=== PATIENT | male | born 1985 | race Caucasian/White ===

== ENCOUNTER 2017-09-18 17:01 | Emergency (ER) | payer MEDICAID ==
[2017-09-18 17:01] VITALS: BMI 29.2
[2017-09-18 17:40] VITALS: RESP 18; TEMP 98.2
--- NOTE | 2017-09-18 17:41 | ED PDOC ---
Arrival/HPI - General Historian: Patient - History of Present Illness Time/Duration: Prior to Arrival Symptom Onset: Gradual Symptom Course: Unchanged Quality: Aching Severity Level: Mild, Moderate Activities at Onset: Rest, Sleeping Context: Home <Brittany Geronimo - Last Filed: 09/18/17 20:11> <Abilio Irvin - Last Filed: 09/18/17 20:33> - General Chief Complaint: Flu-like Symptoms Time Seen by Provider: 09/18/17 17:28 - History of Present Illness Narrative History of Present Illness (Text): 09/18/17 17:36 Pt is 31 yo M who presents with fever and cough x 2 days. Pt reports that he developed sinus congestion and sore throat that progressed to a non-productive cough and body aches. States subjective fever last night with a cold sweat. Pt has not had the flu shot this year. Denies SOB, CP, or headache. Took ibuprofen 400 mg this am for fever. 09/18/17 17:41 (Brittany Geronimo) Past Medical History - Provider Review Nursing Documentation Reviewed: Yes - Travel History Have you recently traveled outside [place] w/in the past 3 mons?: No - Past History Past History: No Previous - Infectious Disease Hx of Infectious Diseases: None - Tetanus Immunization Tetanus Immunization: Unknown - Cardiac Hx Cardiac Disorders: Yes Other/Comment: palpitations - Pulmonary Hx Asthma: Yes - Neurological Hx Neurological Disorder: No - HEENT Hx HEENT Disorder: No - Renal Hx Renal Disorder: No - Endocrine/Metabolic Hx Endocrine Disorders: No - Hematological/Oncological Hx Blood Disorders: No - Integumentary Hx Dermatological Disorder: No - Musculoskeletal/Rheumatological Hx Musculoskeletal Disorders: Yes (right rotator cuff repair) - Gastrointestinal Hx Gastrointestinal Disorders: No - Genitourinary/Gynecological Hx Genitourinary Disorders: No - Psychiatric Hx Psychophysiologic Disorder: No Hx Substance Use: No - Past Surgical History Past Surgical History: No Previous - Surgical History Hx Appendectomy: Yes Hx Orthopedic Surgery: Yes (rotator cuff repair) - Anesthesia Hx Anesthesia: Yes Hx Anesthesia Reactions: No Hx Malignant Hyperthermia: No - Suicidal Assessment Feels Threatened In Home Enviroment: No <Brittany Geronimo - Last Filed: 09/18/17 20:11> Family/Social History - Physician Review Nursing Documentation Reviewed: Yes Family/Social History: No Known Family HX Smoking Status: Light Smoker < 10 Cigarettes Daily Hx Alcohol Use: Yes Frequency of alcohol use: Socially Hx Substance Use: No Hx Substance Use Treatment: No <Brittany Geronimo - Last Filed: 09/18/17 20:11> Allergies/Home Meds <Brittany Geronimo - Last Filed: 09/18/17 20:11> <AlbaroAbilio - Last Filed: 09/18/17 20:33> Allergies/Adverse Reactions: Allergies No Known Allergies Allergy (Verified 09/18/17 17:24) Home Medications: Home Meds Medication Instructions Recorded Confirmed Albuterol HFA [Ventolin HFA 90 1 puff IH PRN PRN 06/06/16 09/18/17 mcg/actuation (8 g)] Review of Systems - Physician Review All systems were reviewed & negative as marked: Yes - Review of Systems Constitutional: Fatigue, Fevers Respiratory: Normal Cardiovascular: Normal. absent: Chest Pain, Palpitations, Edema, Calf Pain, ROMAN , Orthopnea, SY, Syncope, Other Gastrointestinal: Normal. absent: Abdominal Pain, Stool Changes, Constipation, Diarrhea, Nausea, Vomiting, Appetite Changes, Hematochezia, Hematemesis, Anorexia, Food Intolerance, Other Musculoskeletal: Normal. absent: Arthralgias, Back Pain, Neck Pain, Joint Swelling, Myalgias, Other <Brittany Geronimo - Last Filed: 09/18/17 20:11> Physical Exam Vital Signs Reviewed: Yes Temperature: Afebrile Blood Pressure: Normal Pulse: Regular Respiratory Rate: Normal Appearance: Positive for: Non-Toxic, Comfortable Pain Distress: None Mental Status: Positive for: Alert and Oriented X 3 - Systems Exam Head: Present: Atraumatic, Normocephalic Pupils: Present: PERRL Extroacular Muscles: Present: EOMI Conjunctiva: Present: Normal Mouth: Present: Moist Mucous Membranes Pharnyx: Present: ERYTHEMA (mild) Neck: Present: Normal Range of Motion Respiratory/Chest: Present: Clear to Auscultation, Good Air Exchange. No: Respiratory Distress, Accessory Muscle Use Cardiovascular: Present: Regular Rate and Rhythm, Normal S1, S2. No: Murmurs Abdomen: Present: Normal Bowel Sounds. No: Tenderness, Distention, Peritoneal Signs Back: Present: Normal Inspection Upper Extremity: Present: Normal Inspection. No: Cyanosis, Edema Lower Extremity: Present: Normal Inspection. No: Edema Neurological: Present: GCS=15, CN II-XII Intact, Speech Normal Skin: Present: Warm, Dry, Normal Color. No: Rashes Psychiatric: Present: Alert, Oriented x 3, Normal Insight, Normal Concentration <Brittany Geronimo - Last Filed: 09/18/17 20:11> Vital Signs Temp Pulse Resp BP Pulse Ox 09/18/17 19:11 74 18 137/84 99 09/18/17 19:01 69 18 148/68 98 09/18/17 17:20 98.2 F 70 18 153/75 H 96 Medical Decision Making Re-evaluation Time: 21:00 (stable) Reassessment Condition: Re-examined - Lab Interpretations I have reviewed the lab results: Yes - RAD Interpretation Vice President Of Advertising: Radiologist <Brittany Geronimo - Last Filed: 09/18/17 20:11> <Abilio Irvin - Last Filed: 09/18/17 20:33> ED Course and Treatment: 09/18/17 17:45 Pt is 31 yo M who presents with fever and cough x 2 days. On PE, post pharynx mildly inflamed, no wheezing on lung exam; nares patent. Plan: Rapid flu CXR incentive spirometer Assess and dispo; -pt has a negative cxr and does not exhibit any signs of asthma exacerbation secondary to URI; -advised pt to return home, get plenty of rest and fluids and use ventolin inhaler if chest congestion -Neg for flu Ag -note for work given 09/18/17 19:33 09/18/17 20:02 (Brittany Geronimo) - Lab Interpretations Lab Results: Lab Results 09/18/17 19:00: Influenza Typ A,B (EIA) Negative for flu a/b - RAD Interpretation Radiology Orders: 09/18/17 18:32 CXR [CHEST TWO VIEWS (PA/LAT)] [RAD] Stat CXR unremarkable (Brittany Geronimo) - PA / VEGETABLE PACKER / Resident Statement MD/DO has reviewed & agrees with the documentation as recorded. <Abilio Irvin - Last Filed: 09/18/17 20:33> Disposition/Present on Arrival - Present on Arrival Any Indicators Present on Arrival: Yes History of DVT/PE: No History of Uncontrolled Diabetes: No Urinary Catheter: No History of Decub. Ulcer: No History Surgical Site Infection Following: None - Disposition Have Diagnosis and Disposition been Completed?: Yes Disposition Time: 19:47 Patient Plan: Discharge <Brittany Geronimo - Last Filed: 09/18/17 20:11> <Abilio Irvin - Last Filed: 09/18/17 20:33> - Disposition Diagnosis: URI (upper respiratory infection) Disposition: HOME/ ROUTINE Condition: GOOD Discharge Instructions (ExitCare): Upper Respiratory Infection (ED) Additional Instructions: Dear Patient, If you experience worsening of symptoms such as high fever, shortness of breath , chest pain or bleeding, return to the ED for further evaluation. Please follow the handouts provided and have a speedy recovery. you may use your Ventolin inhaler to help you breathe easier and you can take ibuprofen for fever and pain as needed. Follow up with your doctor in the next few days. Be well Referrals: Destiny Contreras, [Primary Care Provider] - Follow up with primary Forms: [employer] (Slovenian), WORK NOTE
[2017-09-18 19:12] VITALS: BP 137/84; PULSE 74; O2SAT 99
--- NOTE | 2017-09-19 08:57 | RAD ---
HISTORY: cough COMPARISON: No prior. TECHNIQUE: Two view chest. Send the upper FINDINGS: LUNGS: No active pulmonary disease. PLEURA: No significant pleural effusion identified. No pneumothorax apparent. CARDIOVASCULAR: Normal. OSSEOUS STRUCTURES: No significant abnormalities. VISUALIZED UPPER ABDOMEN: Normal. OTHER FINDINGS: None. IMPRESSION: No active disease.
== END 2017-09-18 20:20 | disposition home or self-care (01) ==
LOC: ED 17:01
DX: J06.9 Acute upper respiratory infection, unspecified (principal); F17.210 Nicotine dependence, cigarettes, uncomplicated

== ENCOUNTER 2018-06-10 23:10 | Emergency (ER) | payer OTHER, MEDICAID ==
[2018-06-10 23:10] VITALS: BMI 29.2
--- NOTE | 2018-06-11 00:25 | ED PDOC ---
Arrival/HPI - General Chief Complaint: Upper Extremity Problem/Injury Time Seen by Provider: 06/11/18 00:04 Historian: Patient - History of Present Illness Narrative History of Present Illness (Text): 06/11/18 00:17 32 year old male, whose past medical history includes appendectomy, presents to the emergency department with left arm pain, status post fall. Patient states he was at work when his arm fell through a hole, and bent all the way back. Patient informs he cannot move his arm due to the pain, and that his left chest is painful to the touch. Patient denies any fevers, chills, headache, dizziness, abdominal pain, nausea, vomiting, diarrhea, back pain, neck pain, urinary/bowel changes, or any other complaint. Time/Duration: Prior to Arrival Symptom Onset: Sudden Symptom Course: Unchanged Past Medical History - Provider Review Nursing Documentation Reviewed: Yes - Past History Past History: No Previous - Infectious Disease Hx of Infectious Diseases: None - Tetanus Immunization Tetanus Immunization: Unknown - Cardiac Hx Cardiac Disorders: No - Pulmonary Hx Asthma: Yes - Neurological Hx Neurological Disorder: No - HEENT Hx HEENT Disorder: No - Renal Hx Renal Disorder: No - Endocrine/Metabolic Hx Endocrine Disorders: No - Hematological/Oncological Hx Blood Disorders: No - Integumentary Hx Dermatological Disorder: No - Musculoskeletal/Rheumatological Hx Musculoskeletal Disorders: Yes (right rotator cuff repair) - Gastrointestinal Hx Gastrointestinal Disorders: No - Genitourinary/Gynecological Hx Genitourinary Disorders: No - Psychiatric Hx Psychophysiologic Disorder: No Hx Substance Use: No - Past Surgical History Past Surgical History: No Previous - Surgical History Hx Appendectomy: Yes Hx Orthopedic Surgery: Yes (rotator cuff repair) - Anesthesia Hx Anesthesia: Yes Hx Anesthesia Reactions: No Hx Malignant Hyperthermia: No - Suicidal Assessment Feels Threatened In Home Enviroment: No Family/Social History - Physician Review Nursing Documentation Reviewed: Yes Family/Social History: No Known Family HX Smoking Status: Light Smoker < 10 Cigarettes Daily Hx Alcohol Use: Yes Hx Substance Use: No Hx Substance Use Treatment: No Allergies/Home Meds Allergies/Adverse Reactions: Allergies No Known Allergies Allergy (Verified 09/18/17 17:24) Home Medications: Home Meds Medication Instructions Recorded Confirmed Albuterol HFA [Ventolin HFA 90 1 puff IH PRN PRN 06/06/16 09/18/17 mcg/actuation (8 g)] Review of Systems - Physician Review All systems were reviewed & negative as marked: Yes - Review of Systems Constitutional: absent: Fevers, Night Sweats Gastrointestinal: absent: Abdominal Pain, Diarrhea, Nausea, Vomiting Genitourinary Male: absent: Urinary Output Changes Musculoskeletal: absent: Back Pain, Neck Pain Neurological: absent: Headache, Dizziness Physical Exam - Physical Exam Narrative Physical Exam (Text): 06/11/18 00:26 Gen: VS reviewed, alert, well developed, well nourished, nontoxic, mild distress. ENT: normal pharynx. Eye: EOMI, PERRL. Neck: no JVD, supple, no adenopathy. CV: regular rate, regular rhythm, no rubs, no murmur, no gallops, S1, S2, pulses equal and strong. Pulm: no distress, clear to auscultation, no wheeze, no rhonchi, breath sounds equal, no rales. Abd: soft, nontender, no guarding, no rebound, no rigidity, normal bowel sounds. Ext: Diffuse tenderness on left shoulder, Significantly diminished ROM secondary to pain, Pain localized to pectoris major attachment. Skin: good color, no rash, no cyanosis. Psych: responds appropriately to questions, normal affect. Neuro: oriented x 3, CN2-12 intact grossly, motor intact, sensation intact. Medical Decision Making ED Course and Treatment: 06/11/18 00:27 Impression: 32 year old male presents with left shoulder pain secondary to injury. Plan: -- Tylenol -- Toradol -- Shoulder Sling -- X-ray left shoulder -- Reassess and disposition Prior Visits: Notes and results from previous visits were reviewed. Progress Notes: 06/11/18 02:04 patient seen for left shoulder injury (hyperextention while arm flexed upward). no overt bony injury, high clinical suspicion for muscle strain vs tear. will provide arm sling, refer to ortho - RAD Interpretation Narrative RAD Interpretations (Text): 06/11/18 01:51 X-ray of left shoulder reviewed by me, shows: No fracture or dislocation. Registered Nurse Supervisor: ED Physician - Scribe Statement The provider has reviewed the documentation as recorded by the Brigetteibnikia Coppola Provider Scribe Attestation: All medical record entries made by the Brigetteibnikia were at my direction and personally dictated by me. I have reviewed the chart and agree that the record accurately reflects my personal performance of the history, physical exam, medical decision making, and the department course for this patient. I have also personally directed, reviewed, and agree with the discharge instructions and disposition. Disposition/Present on Arrival - Present on Arrival Any Indicators Present on Arrival: No History of DVT/PE: No History of Uncontrolled Diabetes: No Urinary Catheter: No History of Decub. Ulcer: No History Surgical Site Infection Following: None - Disposition Have Diagnosis and Disposition been Completed?: Yes Diagnosis: Shoulder sprain, Muscle strain of left upper arm Disposition: HOME/ ROUTINE Disposition Time: 02:06 Patient Plan: Discharge Condition: STABLE Discharge Instructions (ExitCare): Muscle Strain, Shoulder Sprain (DC) Additional Instructions: You must follow up with the orthopedic surgeon as soon as possible. JERRY LAUREANO, thank you for letting us take care of you today. Your provider was Dr. Carlos Gaviria and you were treated for lft shoulder injury The emergency medical care you received today was directed at your acute symptoms. If you were prescribed any medication, please fill it and take as directed. It may take several days for your symptoms to resolve. Return to the Emergency Department if your symptoms worsen, do not improve, or if you have any other problems. Please contact your doctor or call one of the physicians/clinics you have been referred to that are listed on the Patient Visit Information form that is included in your discharge packet. Bring any paperwork you were given at discharge with you along with any medications you are taking to your follow up visit. Our treatment cannot replace ongoing medical care by a primary care prov ider outside of the emergency department. Thank you for allowing the [facility] team to be part of your care today. If you had an X-Ray or CT scan: A Radiologist will review the ED reading if any change in treatment is needed we will contact you. If you had a blood, urine, or wound culture: It will take several days for the results, if any change in treatment is needed we will contact you. If you had an STI test: It will take 48 hours for the results. Please call after 1 week if you have not heard back. Prescriptions: Ibuprofen [Motrin Tab] 600 mg PO QID #42 tab Referrals: PCP,NO [Primary Care Provider] - Follow up with primary [facility] [Outside] - Follow up with primary Daina Hernandez MD [Medical Doctor] - Follow up with primary Jorge Subramanian MD [Medical Doctor] - Follow up with primary Forms: [employer] (Ukrainian), WORK NOTE
[2018-06-11 00:39] VITALS: RESP 18
[2018-06-11 03:09] VITALS: BP 130/70; PULSE 70; TEMP 98.1; O2SAT 99
--- NOTE | 2018-06-11 09:31 | RAD ---
Date of service: 06/11/2018 PROCEDURE: Radiographs of the Left Shoulder HISTORY: hyperextension, injury COMPARISON: No prior. FINDINGS: BONES: Bone alignment and mineralization are normal. There is no acute displaced fracture or bone destruction. JOINTS: Normal. Glenohumeral and acromioclavicular joints preserved. No osteoarthritis. SOFT TISSUES: Normal. OTHER FINDINGS: None. IMPRESSION: No acute fracture or dislocation is.
== END 2018-06-11 02:15 | disposition home or self-care (01) ==
LOC: ED 23:10
DX: S43.402A Unspecified sprain of left shoulder joint, initial encounter (principal); S46.912A Strain of unspecified muscle, fascia and tendon at shoulder and upper arm level, left arm, initial encounter; X50.0XXA Overexertion from strenuous movement or load, initial encounter; Y92.89 Other specified places as the place of occurrence of the external cause; Y99.0 Civilian activity done for income or pay
CPT/HCPCS: 73030; 96372; 99283; J1885

== ENCOUNTER 2018-06-13 20:28 | Inpatient (IN) | payer MEDICAID, OTHER ==
[2018-06-13 20:37] VITALS: BMI 28.5
--- NOTE | 2018-06-13 21:38 | ED PDOC ---
Arrival/HPI - General Chief Complaint: Abdominal Pain Time Seen by Provider: 06/13/18 21:16 Historian: Patient - History of Present Illness Narrative History of Present Illness (Text): 06/13/18 21:38 A 32 year old male, whose past medical history includes an appendectomy, presents to the emergency department complaining of 10/10 abdominal pain since 2 days ago. Patient reports experiencing constant pain with associated vomiting, nausea and chills. Patient states he drank pepto bismol for pain to no relief and denies taking any other medication for pain. Patient states last bowel movement was 4 days ago. Patient denies any fever, shortness of breath, chest pain, diarrhea, urinary symptoms, back pain, neck pain, headache, dizziness, or any other complaints. Time/Duration: Other (2 days ago) Symptom Onset: Gradual Symptom Course: Unchanged Severity Level: Moderate Activities at Onset: Light Context: Home Past Medical History - Provider Review Nursing Documentation Reviewed: Yes - Past History Past History: No Previous - Infectious Disease Hx of Infectious Diseases: None - Tetanus Immunization Tetanus Immunization: Unknown - Cardiac Hx Cardiac Disorders: No - Pulmonary Hx Asthma: Yes - Neurological Hx Neurological Disorder: No - HEENT Hx HEENT Disorder: No - Renal Hx Renal Disorder: No - Endocrine/Metabolic Hx Endocrine Disorders: No - Hematological/Oncological Hx Blood Disorders: No - Integumentary Hx Dermatological Disorder: No - Musculoskeletal/Rheumatological Hx Musculoskeletal Disorders: Yes (right rotator cuff repair) - Gastrointestinal Hx Gastrointestinal Disorders: No - Genitourinary/Gynecological Hx Genitourinary Disorders: No - Psychiatric Hx Psychophysiologic Disorder: No Hx Substance Use: No - Past Surgical History Past Surgical History: No Previous - Surgical History Hx Appendectomy: Yes Hx Orthopedic Surgery: Yes (rotator cuff repair) - Anesthesia Hx Anesthesia: Yes Hx Anesthesia Reactions: No Hx Malignant Hyperthermia: No - Suicidal Assessment Feels Threatened In Home Enviroment: No Family/Social History - Physician Review Nursing Documentation Reviewed: Yes Family/Social History: Unknown Family HX Smoking Status: Light Smoker < 10 Cigarettes Daily Hx Alcohol Use: Yes Hx Substance Use: No Hx Substance Use Treatment: No Allergies/Home Meds Allergies/Adverse Reactions: Allergies No Known Allergies Allergy (Verified 09/18/17 17:24) Home Medications: Home Meds Medication Instructions Recorded Confirmed RX: No Known Home Med 10/18/18 10/18/18 Review of Systems - Physician Review All systems were reviewed & negative as marked: Yes - Review of Systems Constitutional: Night Sweats. absent: Fevers Respiratory: absent: SOB Cardiovascular: absent: Chest Pain Gastrointestinal: Abdominal Pain, Nausea, Vomiting. absent: Diarrhea Genitourinary Male: absent: Urinary Output Changes Musculoskeletal: absent: Back Pain, Neck Pain Neurological: absent: Headache, Dizziness Physical Exam Vital Signs Reviewed: Yes Vital Signs Temp Pulse Resp BP Pulse Ox 06/13/18 20:36 98.7 F 93 H 18 148/75 100 Temperature: Afebrile Blood Pressure: Normal Pulse: Tachycardic Respiratory Rate: Normal Appearance: Positive for: Well-Appearing, Non-Toxic, Comfortable Pain Distress: None Mental Status: Positive for: Alert and Oriented X 3 - Systems Exam Head: Present: Atraumatic, Normocephalic Pupils: Present: PERRL Extroacular Muscles: Present: EOMI Conjunctiva: Present: Normal Mouth: Present: Moist Mucous Membranes (+pink ), Dry Neck: Present: Normal Range of Motion Respiratory/Chest: Present: Clear to Auscultation, Good Air Exchange. No: Respiratory Distress, Accessory Muscle Use Cardiovascular: Present: Regular Rate and Rhythm, Normal S1, S2. No: Murmurs Abdomen: Present: Tenderness (+tenderness in epigastric area, right and left lower quadrants), Other (+obese). No: Distention, Rebound, Guarding Genitourinary Male: Present: Other (+decreased bowel sounds) Back: Present: Normal Inspection Upper Extremity: Present: Normal Inspection. No: Cyanosis, Edema Lower Extremity: Present: Normal Inspection. No: Edema Neurological: Present: GCS=15, CN II-XII Intact, Speech Normal Skin: Present: Warm, Dry, Normal Color. No: Rashes Psychiatric: Present: Alert, Oriented x 3, Normal Insight, Normal Concentration Medical Decision Making ED Course and Treatment: 06/13/18 21:35 Impression: 32 year old male presenting to the emergency department complaining of abdominal pain. Plan: -- CT of Abdomen and Pelvis -- Toradol -- Zofran -- IV fluids -- Reassess and disposition Prior Visits: Notes and results from previous visits were reviewed. Progress Notes: 06/14/18 00:22 Procedure: CT of the abdomen and pelvis with contrast Impression: Impression: 1. Moderate enteritis. No evidence of obstruction. Dictator:Miguel Lomeli M.D 06/14/18 00:35 Upon reassessment, patient has an elevated white count and AST and ALT are markedly elevated. Patient reports toradol helped some but refuses any other types due to family history of addiction. Patient agrees to be admitted to hospital and agreed for poc. 06/14/18 00:[address] Mauricio, hospitalist, who accepts the patient into his service for further evaluation and management. 06/14/18 05:52 - Scribe Statement The provider has reviewed the documentation as recorded by the Scribe Deisi Nettles All medical record entries made by the Scribe were at my direction and personally dictated by me. I have reviewed the chart and agree that the record accurately reflects my personal performance of the history, physical exam, medical decision making, and the department course for this patient. I have also personally directed, reviewed, and agree with the discharge instructions and disposition. Disposition/Present on Arrival - Present on Arrival Any Indicators Present on Arrival: No History of DVT/PE: No History of Uncontrolled Diabetes: No Urinary Catheter: No History of Decub. Ulcer: No History Surgical Site Infection Following: None - Disposition Have Diagnosis and Disposition been Completed?: Yes Diagnosis: Abdominal pain, Transaminitis Disposition: HOSPITALIZED Disposition Time: 00:54 Patient Plan: Admission Condition: STABLE
[2018-06-13] MEDS ORDERED: Sodium Chloride 0.9% 1,000 ML IV STA (21:55)
[2018-06-13 22:08] LABS: BASO # 0.02 K/mm3 (0.0-2.0); BASO % 0.1 % (0.0-3.0); EOS # 0.1 (0.0-0.7); EOS % 0.5 % (1.5-5.0); GRAN # 12.49 (1.4-6.5); GRAN % 78.8 % (50.0-68.0); HEMOGLOBIN 13.7 g/dL (14.0-18.0); LYMPH # 2.1 (1.2-3.4); LYMPH % 13.2 % (22.0-35.0); MEAN CELL VOLUME 84.5 fl (80.0-105.0); MEAN CORPUSCULAR HEMOGLOBIN 28.3 pg (25.0-35.0); MEAN CORPUSCULAR HGB CONC 33.5 g/dl (31.0-37.0); MEAN PLATELET VOLUME 10.6 fl (7.0-11.0); MONO # 1.2 (0.1-0.6); MONO % 7.4 % (1.0-6.0); RBC 4.84 10^6/uL (3.5-6.1); RED CELL DISTRIBUTION WIDTH 13.7 % (11.5-14.5); WHITE BLOOD COUNT 15.9 10^3/ul (4.5-11.0)
[2018-06-13 22:19] LABS: ALB/GLOB RATIO 1.1 (1.1-1.8); ALBUMIN 4.4 g/dL (3.0-4.8); BLOOD UREA NITROGEN 12 mg/dL (7-21); CALCIUM 9.5 mg/dL (8.4-10.5); GFR NON-AFRICAN AMERICAN > 60; LIPASE 67 U/L (23-300)
[2018-06-13 22:28] LABS: ALT/SGPT 1511 U/L (7-56); AST/SGOT 1045 U/L (17-59)
[2018-06-14] MEDS ORDERED: Morphine 4 mg/ml ISec IVP STA (01:19)
[2018-06-14] MEDS ORDERED: oxyCODONE 10 mg Immediate Release Tab PO PRN (01:21)
[2018-06-14] MEDS ORDERED: ACETYLCYSTEINE IVPB STA (01:23)
[2018-06-14] MEDS ORDERED: WATER IVPB STA (01:23)
[2018-06-14] MEDS ORDERED: DEXTROSE 5% IVPB STA (01:23)
--- NOTE | 2018-06-14 01:27 | CP.PCM.HP ---
<Wojciech Mendoza - Last Filed: 06/14/18 05:10> History of Present Illness - History of Present Illness History of Present Illness: Wojciech Mendoza, PGY-1 History and Physical for Hospitalist Service CC: Abdominal pain HPI: Mr. Cano is a 32 year old male with PMHx of appendectomy presents toda y with complaint of intractable nausea and vomiting x 3 day. He states he has had sharp pain that comes in 5-7 minute waves that has not been relieved by over the counter medications. Patient states he could not keep any food down. Patient reports dark urine. Patient reports multiple family members have suffered from opiate dependence. No bowel movements for three days. Reports urine has been dark and feel dehydrated. Patient reports taking 3 children's Tylenol for 2 days for abdominal pain, and patient reports use of Muscle milk and pepto bismol without relief. Denies any fever, chills, chest pain, shortness of breath, cough or dysuria. Denies any other complaints. PMD: none PMH: denies PSH: appendectomy, right shoulder surgery Home Medications: denies Social History: former smokes 1 ppd; drinks socially; denies illicit drug use (Utox in past positive for benzodiazepines and amphetamines) Fam hx: mom- DM and thyroid issues, Uncle has liver cirrhosis, grandmother recently passed from stroke All: NKDA PCP: None Present on Admission - Present on Admission Any Indicators Present on Admission: No Review of Systems - Review of Systems Review of Systems: 12 point ROS completed and negative except as described in HPI. Past Patient History - Infectious Disease Hx of Infectious Diseases: None - Tetanus Immunizations Tetanus Immunization: Unknown - Past Social History Smoking Status: Light Smoker < 10 Cigarettes Daily - CARDIAC Hx Cardiac Disorders: No - PULMONARY Hx Asthma: Yes - NEUROLOGICAL Hx Neurological Disorder: No - HEENT Hx HEENT Problems: No - RENAL Hx Chronic Kidney Disease: No - ENDOCRINE/METABOLIC Hx Endocrine Disorders: No - HEMATOLOGICAL/ONCOLOGICAL Hx Blood Disorders: No - INTEGUMENTARY Hx Dermatological Problems: No - MUSCULOSKELETAL/RHEUMATOLOGICAL Hx Musculoskeletal Disorders: Yes (right rotator cuff repair) - GASTROINTESTINAL Hx Gastrointestinal Disorders: No - GENITOURINARY/GYNECOLOGICAL Hx Genitourinary Disorders: No - PSYCHIATRIC Hx Psychophysiologic Disorder: No Hx Substance Use: No - SURGICAL HISTORY Hx Appendectomy: Yes Hx Orthopedic Surgery: Yes (rotator cuff repair) - ANESTHESIA Hx Anesthesia: Yes Hx Anesthesia Reactions: No Hx Malignant Hyperthermia: No Meds Allergies/Adverse Reactions: Allergies Allergy/AdvReac Type Severity Reaction Status Date / Time No Known Allergies Allergy Verified 09/18/17 17:24 Physical Exam - Constitutional Appears: Non-toxic, In Acute Distress - Head Exam Head Exam: ATRAUMATIC, NORMOCEPHALIC - Eye Exam Eye Exam: EOMI, Normal appearance Pupil Exam: PERRL - ENT Exam ENT Exam: Mucous Membranes Moist - Neck Exam Neck exam: Positive for: Normal Inspection - Respiratory Exam Respiratory Exam: Decreased Breath Sounds, Clear to Auscultation Bilateral, NORMAL BREATHING PATTERN. absent: Rales, Rhonchi, Wheezes - Cardiovascular Exam Cardiovascular Exam: RRR, +S1, +S2 - GI/Abdominal Exam GI & Abdominal Exam: Hypoactive Bowel Sounds, Soft, Tenderness (RUQ and LLQ ). absent: Guarding, Rebound - Extremities Exam Extremities exam: Positive for: normal inspection - Back Exam Back exam: FULL ROM. absent: CVA tenderness (L), CVA tenderness (R) - Neurological Exam Neurological exam: Alert, CN II-XII Intact, Oriented x3 - Psychiatric Exam Psychiatric exam: Agitated - Skin Skin Exam: Dry, Intact Results - Vital Signs Recent Vital Signs: Last Vital Signs Temp 98.7 F 06/13/18 20:36 Pulse 93 H 06/13/18 20:36 Resp 18 06/13/18 20:36 BP 148/75 06/13/18 20:36 Pulse Ox 100 06/13/18 20:36 - Labs Result Diagrams: 06/13/18 22:00 06/13/18 22:00 Labs: Laboratory Results - last 24 hr 06/13/18 06/13/18 22:00 22:00 WBC 15.9 H D RBC 4.84 Hgb 13.7 L Hct 40.9 L MCV 84.5 MCH 28.3 MCHC 33.5 RDW 13.7 Plt Count 320 MPV 10.6 Gran % 78.8 H Lymph % (Auto) 13.2 L [place] % (Auto) 7.4 H Eos % (Auto) 0.5 L Baso % (Auto) 0.1 Gran # 12.49 H Lymph # (Auto) 2.1 [place] # (Auto) 1.2 H Eos # (Auto) 0.1 Baso # (Auto) 0.02 Sodium 146 Potassium 3.3 L Chloride 110 H Carbon Dioxide 24 Anion Gap 15 BUN 12 Creatinine 1.1 Est GFR ( Amer) > 60 Est GFR (Non-Af Amer) > 60 Random Glucose 102 Calcium 9.5 Magnesium 2.1 Total Bilirubin 0.4 AST 1045 H ALT 1511 H Alkaline Phosphatase 84 Total Protein 8.2 Albumin 4.4 Globulin 3.8 Albumin/Globulin Ratio 1.1 Lipase 67 Assessment & Plan - Assessment and Plan (Free Text) Assessment: Assessment: 32 M with PMHx appendectomy who presents with persistent vomiting and abdominal pain. Elevated AST/ALT with normal bilirubin. Unknown if patient ingested any pills. Plan: Transaminitis AST/ALT 1045/1511 2/2 infectious vs thrombotic vs autoimmune etiology - admit to remote tele - [facility] protocol x3 - r/o infectious etiology - EBV, CMV, HIV, HSV and Hep panel - Tylenol level ordered - LDH 2150 - f/u INR - f/u UA, UDS and ETOH level - f/u Autoimmune workup - antimitochondrial and antismooth muscle to r/o AIH and PBC - trend LFTs, INR and LDH - GI and ID consults - recommendations appreciated - DrTorrie - Monitor for any changes in metal status- Neuro checks and Vital signs q4 as patient is high risk for acute liver failure - Ceftriaxone 1 gm daily and Flagyl 500 mg q8 - oxycodone 10 mg q6h for moderate pain - NS @125 cc/hr - Morphine 4 mg q6h for severe pain - f/u Abdominal duplex study - CT of the abdomen and pelvis with contrast shows Moderate enteritis without ev idence of obstruction. F/U official read. Mild leukocytosis likely reactive to vomiting will r/o infectious causes f/u blood cultures PPx SCDs, Heparin SC Protonix Patient seen, case reviewed, and plan approved by Dr. Mauricio. Wojciech Mendoza, PGY-1 <Nawaf Mauricio - Last Filed: 06/14/18 06:32> Results - Vital Signs Recent Vital Signs: Last Vital Signs Temp 98.7 F 06/13/18 20:36 Pulse 67 06/14/18 06:00 Resp 20 06/14/18 04:42 BP 100/87 06/14/18 04:00 Pulse Ox 100 06/14/18 04:00 - Labs Result Diagrams: 06/13/18 22:00 06/13/18 22:00 Labs: Laboratory Results - last 24 hr 06/13/18 06/13/18 06/13/18 22:00 22:00 22:00 WBC 15.9 H D RBC 4.84 Hgb 13.7 L Hct 40.9 L MCV 84.5 MCH 28.3 MCHC 33.5 RDW 13.7 Plt Count 320 MPV 10.6 Gran % 78.8 H Lymph % (Auto) 13.2 L [place] % (Auto) 7.4 H Eos % (Auto) 0.5 L Baso % (Auto) 0.1 Gran # 12.49 H Lymph # (Auto) 2.1 [place] # (Auto) 1.2 H Eos # (Auto) 0.1 Baso # (Auto) 0.02 PT 13.4 H INR 1.17 Sodium 146 Potassium 3.3 L Chloride 110 H Carbon Dioxide 24 Anion Gap 15 BUN 12 Creatinine 1.1 Est GFR ( Amer) > 60 Est GFR (Non-Af Amer) > 60 Random Glucose 102 Calcium 9.5 Magnesium 2.1 Total Bilirubin 0.4 AST 1045 H ALT 1511 H Alkaline Phosphatase 84 Ammonia Lactate Dehydrogenase Total Protein 8.2 Albumin 4.4 Globulin 3.8 Albumin/Globulin Ratio 1.1 Triglycerides Cholesterol LDL Cholesterol Direct HDL Cholesterol Lipase 67 Urine Color Urine Appearance Urine pH Ur Specific [place] Urine Protein Urine Glucose (UA) Urine Ketones Urine Blood Urine Nitrate Urine Bilirubin Urine Urobilinogen Ur Leukocyte Esterase Urine RBC Urine WBC Ur Epithelial Cells Urine Bacteria Urine Opiates Screen Urine Methadone Screen Acetaminophen Ur Barbiturates Screen Ur Phencyclidine Scrn Ur Amphetamines Screen U Benzodiazepines Scrn U Oth Cocaine Metabols U Cannabinoids Screen Alcohol, Quantitative 06/13/18 06/13/18 06/13/18 22:00 22:00 22:00 WBC RBC Hgb Hct MCV MCH MCHC RDW Plt Count MPV Gran % Lymph % (Auto) [place] % (Auto) Eos % (Auto) Baso % (Auto) Gran # Lymph # (Auto) [place] # (Auto) Eos # (Auto) Baso # (Auto) PT INR Sodium Potassium Chloride Carbon Dioxide Anion Gap BUN Creatinine Est GFR ( Amer) Est GFR (Non-Af Amer) Random Glucose Calcium Magnesium Total Bilirubin AST ALT Alkaline Phosphatase Ammonia Lactate Dehydrogenase > 2150 H Total Protein Albumin Globulin Albumin/Globulin Ratio Triglycerides 140 Cholesterol 127 L LDL Cholesterol Direct 68 HDL Cholesterol 37 Lipase Urine Color Urine Appearance Urine pH Ur Specific [place] Urine Protein Urine Glucose (UA) Urine Ketones Urine Blood Urine Nitrate Urine Bilirubin Urine Urobilinogen Ur Leukocyte Esterase Urine RBC Urine WBC Ur Epithelial Cells Urine Bacteria Urine Opiates Screen Urine Methadone Screen Acetaminophen < 10.0 L Ur Barbiturates Screen Ur Phencyclidine Scrn Ur Amphetamines Screen U Benzodiazepines Scrn U Oth Cocaine Metabols U Cannabinoids Screen Alcohol, Quantitative < 10 06/14/18 06/14/18 06/14/18 02:00 02:30 02:30 WBC RBC Hgb Hct MCV MCH MCHC RDW Plt Count MPV Gran % Lymph % (Auto) [place] % (Auto) Eos % (Auto) Baso % (Auto) Gran # Lymph # (Auto) [place] # (Auto) Eos # (Auto) Baso # (Auto) PT INR Sodium Potassium Chloride Carbon Dioxide Anion Gap BUN Creatinine Est GFR ( Amer) Est GFR (Non-Af Amer) Random Glucose Calcium Magnesium Total Bilirubin AST ALT Alkaline Phosphatase Ammonia 16 Lactate Dehydrogenase Total Protein Albumin Globulin Albumin/Globulin Ratio Triglycerides Cholesterol LDL Cholesterol Direct HDL Cholesterol Lipase Urine Color Yellow Urine Appearance Sl cloudy Urine pH 6.5 Ur Specific [place] 1.010 Urine Protein 30 H Urine Glucose (UA) Negative Urine Ketones 15 H Urine Blood Moderate H Urine Nitrate Negative Urine Bilirubin Negative Urine Urobilinogen 1.0 H Ur Leukocyte Esterase Negative Urine RBC 10 - 15 Urine WBC 0 - 2 Ur Epithelial Cells 0 - 2 Urine Bacteria None Urine Opiates Screen Positive H Urine Methadone Screen Positive H Acetaminophen Ur Barbiturates Screen Negative Ur Phencyclidine Scrn Negative Ur Amphetamines Screen Negative U Benzodiazepines Scrn Positive H U Oth Cocaine Metabols Positive H U Cannabinoids Screen Negative Alcohol, Quantitative Attending/Attestation - Attestation I have personally seen and examined this patient.: Yes I have fully participated in the care of the patient.: Yes I have reviewed all pertinent clinical information: Yes
[2018-06-14 01:47] LABS: INR 1.17; PROTHROMBIN TIME 13.4 SECONDS (9.4-12.5)
[2018-06-14 02:08] LABS: HDL CHOLESTEROL 37 mg/dL (29-60)
[2018-06-14 02:18] LABS: LDL CHOLESTEROL 68 mg/dL (0-129)
[2018-06-14] MEDS ORDERED: ACETYLCYSTEINE IVPB ONE ×2 (02:45→07:00)
[2018-06-14] MEDS ORDERED: WATER IVPB ONE ×2 (02:45→07:00)
[2018-06-14] MEDS ORDERED: DEXTROSE 5% IVPB ONE ×2 (02:45→07:00)
[2018-06-14 03:06] LABS: PH,URINE 6.5 (4.7-8.0); URINE BILIRUBIN NEGATIVE (NEGATIVE); URINE BLOOD MODERATE (NEGATIVE); URINE GLUCOSE (UA) NEGATIVE (NEGATIVE); URINE LEUKOCYTE ESTERASE NEGATIVE Leu/uL (NEGATIVE); URINE PROTEIN 30 mg/dL (<30 mg/dL)
[2018-06-14 03:10] LABS: URINE APPEARANCE SL CLOUDY (CLEAR); URINE COLOR YELLOW (YELLOW)
[2018-06-14 03:24] LABS: URINE EPITHELIAL CELLS 0 - 2 /hpf (0-5); URINE WBC 0 - 2 /hpf (0-6)
[2018-06-14 03:27] LABS: BARBITURATES, UR NEGATIVE (NEGATIVE); BENZODIAZEPINES, UR POSITIVE (NEGATIVE); OPIATES, UR POSITIVE (NEGATIVE); PHENCYCLIDINE, UR NEGATIVE (NEGATIVE)
[2018-06-14] MEDS ORDERED: Sodium Chloride 0.9% 1,000 ML IV STA (05:16)
[2018-06-14] MEDS ORDERED: metroNIDAZOLE IV 500 mg/100 ml 500 MG/100 ML BAG IVPB SCH (06:00)
[2018-06-14 06:46] LABS: INR 1.26; PROTHROMBIN TIME 14.5 SECONDS (9.4-12.5)
[2018-06-14 06:55] LABS: BASO # 0.02 K/mm3 (0.0-2.0); BASO % 0.2 % (0.0-3.0); EOS # 0.3 (0.0-0.7); EOS % 2.2 % (1.5-5.0); GRAN # 8.19 (1.4-6.5); GRAN % 69.2 % (50.0-68.0); HEMOGLOBIN 12.6 g/dL (14.0-18.0); LYMPH # 2.1 (1.2-3.4); LYMPH % 17.9 % (22.0-35.0); MEAN CELL VOLUME 84.4 fl (80.0-105.0); MEAN CORPUSCULAR HEMOGLOBIN 27.2 pg (25.0-35.0); MEAN CORPUSCULAR HGB CONC 32.2 g/dl (31.0-37.0); MONO # 1.2 (0.1-0.6); MONO % 10.5 % (1.0-6.0); RBC 4.63 10^6/uL (3.5-6.1); RED CELL DISTRIBUTION WIDTH 13.7 % (11.5-14.5); WHITE BLOOD COUNT 11.8 10^3/ul (4.5-11.0)
[2018-06-14 07:26] LABS: ALB/GLOB RATIO 1.1 (1.1-1.8); ALBUMIN 3.7 g/dL (3.0-4.8); ALT/SGPT 1055 U/L (7-56); AST/SGOT 473 U/L (17-59); BLOOD UREA NITROGEN 10 mg/dL (7-21); CALCIUM 8.8 mg/dL (8.4-10.5); GFR NON-AFRICAN AMERICAN > 60
[2018-06-14] MEDS ORDERED: Potassium Phosphate 15 MMOLE in Sodium Chloride 0.9% 250 ML IVPB ONE (07:41)
--- NOTE | 2018-06-14 08:31 | CP.PCM.CON ---
Addendum entered and electronically signed by Elvis Ho DO 06/14/18 17:47: Strongly suspect ischemia induced hepatitis and enteritis due to cocaine. Monitor CMP, INR. As long as slowly improves with supportive care can hold off further w/u. Clear Liq diet for now. Original Note: <Elvis Ho - Last Filed: 06/14/18 08:27> History of Present Illness - History of Present Illness History of Present Illness: PGY-4 GI Fellow Consult Note Pt is a 32 yo BM with h/o Tob Abuse and Polysubstance abuse (states quit smoking years ago, benzos and cocaine "awhile" ago) presenting with complain of N/V and abd pain. He states that 3 days ago he had abrupt onset N/V of food and clearish emesis. Denies any bloody or bilious emesis. State that symptoms would come in go in waver every several minutes. States that he ate at a [employer] in [place] several hours prior to the onset of symptoms. Denies anyone else with similar complaints, sick contacts, recent travel, abx use, change in diet or raw food consumption. He states that in the last day or so he had onset of epigastric and right sided abd pain that is described as feeling like someone punched him in the stomach. States that he took 3 tabs of childrens APAP on one day and 3 tabs the following day, no more than 6 tabs over a 24 hrs period. He states he also took some pepto and muscle milk w/o relief. He states that he has not been able to keep anything down for days and that his last BM was about 3 days ago as a result. Last BM was reportedly formed brown stool. He denies any weight loss, IV drug use, family history of GI problems but later thinks that his dad might have had a liver problem but is not sure. 12 point ROS negative other than stated above MHx: None SurgHx: Appy, shoulder surgery Meds: None daily other than above FamHx: Father with possible liver problems SocHx: States that he hasn't smoked or any drugs in years All: NKDA Past Patient History - Infectious Disease Hx of Infectious Diseases: None - Tetanus Immunizations Tetanus Immunization: Unknown - Past Social History Smoking Status: Light Smoker < 10 Cigarettes Daily - CARDIAC Hx Cardiac Disorders: No - PULMONARY Hx Asthma: Yes - NEUROLOGICAL Hx Neurological Disorder: No - HEENT Hx HEENT Problems: No - RENAL Hx Chronic Kidney Disease: No - ENDOCRINE/METABOLIC Hx Endocrine Disorders: No - HEMATOLOGICAL/ONCOLOGICAL Hx Blood Disorders: No - INTEGUMENTARY Hx Dermatological Problems: No - MUSCULOSKELETAL/RHEUMATOLOGICAL Hx Musculoskeletal Disorders: Yes (right rotator cuff repair) - GASTROINTESTINAL Hx Gastrointestinal Disorders: No - GENITOURINARY/GYNECOLOGICAL Hx Genitourinary Disorders: No - PSYCHIATRIC Hx Psychophysiologic Disorder: No Hx Substance Use: No - SURGICAL HISTORY Hx Appendectomy: Yes Hx Orthopedic Surgery: Yes (rotator cuff repair) - ANESTHESIA Hx Anesthesia: Yes Hx Anesthesia Reactions: No Hx Malignant Hyperthermia: No Meds Allergies/Adverse Reactions: Allergies Allergy/AdvReac Type Severity Reaction Status Date / Time No Known Allergies Allergy Verified 09/18/17 17:24 - Medications Medications: Current Medications Heparin Sodium (Porcine) (Heparin) 5,000 units SC Q8 SKY; Protocol Last Admin: 06/14/18 05:34 Dose: 5,000 units Acetylcysteine 9,530 mg/ (Dextrose) 1,047.65 mls @ 62.5 mls/hr IVPB ONCE ONE Stop: 06/14/18 23:45 Potassium Phosphate 15 mmole/ (Sodium Chloride) 255 mls @ 42.5 mls/hr IVPB ONCE ONE Stop: 06/14/18 13:40 Morphine Sulfate (Morphine) 4 mg IVP Q4H PRN PRN Reason: Pain, severe (8-10) Oxycodone HCl (Oxycodone Immediate Release Tab) 10 mg PO Q6H PRN PRN Reason: Pain, moderate (4-7) Pantoprazole Sodium (Protonix Inj) 40 mg IVP DAILY [facility] Physical Exam - Constitutional Appears: Well, Non-toxic, Toxic - Head Exam Head Exam: ATRAUMATIC, NORMAL INSPECTION - Eye Exam Eye Exam: EOMI, Normal appearance. absent: Conjunctival injection, Scleral icterus - ENT Exam ENT Exam: Mucous Membranes Dry, Normal External Ear Exam. absent: Mucous Membranes Moist - Respiratory Exam Respiratory Exam: Accessory Muscle Use, Clear to Auscultation Bilateral, NORMAL BREATHING PATTERN - Cardiovascular Exam Cardiovascular Exam: REGULAR RHYTHM, RRR - GI/Abdominal Exam GI & Abdominal Exam: Normal Bowel Sounds, Soft, Tenderness (in epigastrum and R half w/o guarding). absent: Bruit, Diminished Bowel Sounds, Distended, Firm, Guarding, Hernia, Hyperactive Bowel Sounds, Mass, Organomegaly, Pulsatile Mass, Rebound, Rigid - Rectal Exam Rectal Exam: Deferred - Extremities Exam Extremities exam: Positive for: normal inspection. Negative for: pedal edema - Neurological Exam Neurological exam: Alert, CN II-XII Intact, Oriented x3 - Psychiatric Exam Psychiatric exam: Normal Affect, Normal Mood - Skin Skin Exam: Normal Color, Warm Results - Vital Signs Recent Vital Signs: Last Vital Signs Temp 98.6 F 06/14/18 06:00 Pulse 62 06/14/18 06:00 Resp 18 06/14/18 06:00 BP 115/60 06/14/18 06:00 Pulse Ox 95 06/14/18 06:00 - Labs Result Diagrams: 06/14/18 06:00 06/14/18 06:00 Labs: Laboratory Results - last 24 hr 06/13/18 06/13/18 06/13/18 22:00 22:00 22:00 WBC 15.9 H D RBC 4.84 Hgb 13.7 L Hct 40.9 L MCV 84.5 MCH 28.3 MCHC 33.5 RDW 13.7 Plt Count 320 MPV 10.6 Gran % 78.8 H Lymph % (Auto) 13.2 L [place] % (Auto) 7.4 H Eos % (Auto) 0.5 L Baso % (Auto) 0.1 Gran # 12.49 H Lymph # (Auto) 2.1 [place] # (Auto) 1.2 H Eos # (Auto) 0.1 Baso # (Auto) 0.02 PT 13.4 H INR 1.17 Sodium 146 Potassium 3.3 L Chloride 110 H Carbon Dioxide 24 Anion Gap 15 BUN 12 Creatinine 1.1 Est GFR ( Amer) > 60 Est GFR (Non-Af Amer) > 60 Random Glucose 102 Calcium 9.5 Phosphorus Magnesium 2.1 Total Bilirubin 0.4 AST 1045 H ALT 1511 H Alkaline Phosphatase 84 Ammonia Lactate Dehydrogenase Total Protein 8.2 Albumin 4.4 Globulin 3.8 Albumin/Globulin Ratio 1.1 Triglycerides Cholesterol LDL Cholesterol Direct HDL Cholesterol Lipase 67 Urine Color Urine Appearance Urine pH Ur Specific [place] Urine Protein Urine Glucose (UA) Urine Ketones Urine Blood Urine Nitrate Urine Bilirubin Urine Urobilinogen Ur Leukocyte Esterase Urine RBC Urine WBC Ur Epithelial Cells Urine Bacteria Urine Opiates Screen Urine Methadone Screen Acetaminophen Ur Barbiturates Screen Ur Phencyclidine Scrn Ur Amphetamines Screen U Benzodiazepines Scrn U Oth Cocaine Metabols U Cannabinoids Screen Alcohol, Quantitative 06/13/18 06/13/18 06/13/18 22:00 22:00 22:00 WBC RBC Hgb Hct MCV MCH MCHC RDW Plt Count MPV Gran % Lymph % (Auto) [place] % (Auto) Eos % (Auto) Baso % (Auto) Gran # Lymph # (Auto) [place] # (Auto) Eos # (Auto) Baso # (Auto) PT INR Sodium Potassium Chloride Carbon Dioxide Anion Gap BUN Creatinine Est GFR ( Amer) Est GFR (Non-Af Amer) Random Glucose Calcium Phosphorus Magnesium Total Bilirubin AST ALT Alkaline Phosphatase Ammonia Lactate Dehydrogenase > 2150 H Total Protein Albumin Globulin Albumin/Globulin Ratio Triglycerides 140 Cholesterol 127 L LDL Cholesterol Direct 68 HDL Cholesterol 37 Lipase Urine Color Urine Appearance Urine pH Ur Specific [place] Urine Protein Urine Glucose (UA) Urine Ketones Urine Blood Urine Nitrate Urine Bilirubin Urine Urobilinogen Ur Leukocyte Esterase Urine RBC Urine WBC Ur Epithelial Cells Urine Bacteria Urine Opiates Screen Urine Methadone Screen Acetaminophen < 10.0 L Ur Barbiturates Screen Ur Phencyclidine Scrn Ur Amphetamines Screen U Benzodiazepines Scrn U Oth Cocaine Metabols U Cannabinoids Screen Alcohol, Quantitative < 10 06/14/18 06/14/18 06/14/18 02:00 02:30 02:30 WBC RBC Hgb Hct MCV MCH MCHC RDW Plt Count MPV Gran % Lymph % (Auto) [place] % (Auto) Eos % (Auto) Baso % (Auto) Gran # Lymph # (Auto) [place] # (Auto) Eos # (Auto) Baso # (Auto) PT INR Sodium Potassium Chloride Carbon Dioxide Anion Gap BUN Creatinine Est GFR ( Amer) Est GFR (Non-Af Amer) Random Glucose Calcium Phosphorus Magnesium Total Bilirubin AST ALT Alkaline Phosphatase Ammonia 16 Lactate Dehydrogenase Total Protein Albumin Globulin Albumin/Globulin Ratio Triglycerides Cholesterol LDL Cholesterol Direct HDL Cholesterol Lipase Urine Color Yellow Urine Appearance Sl cloudy Urine pH 6.5 Ur Specific [place] 1.010 Urine Protein 30 H Urine Glucose (UA) Negative Urine Ketones 15 H Urine Blood Moderate H Urine Nitrate Negative Urine Bilirubin Negative Urine Urobilinogen 1.0 H Ur Leukocyte Esterase Negative Urine RBC 10 - 15 Urine WBC 0 - 2 Ur Epithelial Cells 0 - 2 Urine Bacteria None Urine Opiates Screen Positive H Urine Methadone Screen Positive H Acetaminophen Ur Barbiturates Screen Negative Ur Phencyclidine Scrn Negative Ur Amphetamines Screen Negative U Benzodiazepines Scrn Positive H U Oth Cocaine Metabols Positive H U Cannabinoids Screen Negative Alcohol, Quantitative 06/14/18 06/14/18 06/14/18 06:00 06:00 06:00 WBC 11.8 H D RBC 4.63 Hgb 12.6 L Hct 39.1 L MCV 84.4 MCH 27.2 MCHC 32.2 RDW 13.7 Plt Count 248 MPV 10.0 Gran % 69.2 H Lymph % (Auto) 17.9 L [place] % (Auto) 10.5 H Eos % (Auto) 2.2 Baso % (Auto) 0.2 Gran # 8.19 H Lymph # (Auto) 2.1 [place] # (Auto) 1.2 H Eos # (Auto) 0.3 Baso # (Auto) 0.02 PT 14.5 H INR 1.26 Sodium 142 Potassium 3.3 L Chloride 112 H Carbon Dioxide 24 Anion Gap 9 L BUN 10 Creatinine 0.9 Est GFR ( Amer) > 60 Est GFR (Non-Af Amer) > 60 Random Glucose 105 Calcium 8.8 Phosphorus 1.6 L Magnesium 2.1 Total Bilirubin 0.3 AST 473 H D ALT 1055 H Alkaline Phosphatase 41 Ammonia Lactate Dehydrogenase 916 H Total Protein 6.9 Albumin 3.7 Globulin 3.2 Albumin/Globulin Ratio 1.1 Triglycerides Cholesterol LDL Cholesterol Direct HDL Cholesterol Lipase Urine Color Urine Appearance Urine pH Ur Specific [place] Urine Protein Urine Glucose (UA) Urine Ketones Urine Blood Urine Nitrate Urine Bilirubin Urine Urobilinogen Ur Leukocyte Esterase Urine RBC Urine WBC Ur Epithelial Cells Urine Bacteria Urine Opiates Screen Urine Methadone Screen Acetaminophen Ur Barbiturates Screen Ur Phencyclidine Scrn Ur Amphetamines Screen U Benzodiazepines Scrn U Oth Cocaine Metabols U Cannabinoids Screen Alcohol, Quantitative Assessment & Plan - Assessment and Plan (Free Text) Assessment: 32 yo BM with reported remote h/o tob abuse and polysubstance abuse presenting with N/V, abd pain found to have elevated transaminases. # Acute Hepatitis: Unclear etiology, though given ALT and AST both >1000, the main differential includes drugs (such as acetaminophen), ischemia and viral hepatitis. APAP wnl on arrive and pt only took 6 tabs total. Abd US was not with doppler; therefore do not know status of vasculature. Pt initially stated no illicit drug use, then later, after discussing UDS results, admitted to recent benzo use and that his "soon to be ex- has a cocaine problem and I may have had some on my hands when cleaning up after her." Therefore unclear drug abuse history as pt might be witholding. Plan: PRELIME NOTE; RECS NOT FINAL UNTIL SIGNED AND STAFFED - APAP wnl - Check Viral Hep --- If negative then broad auto-immune w/u - Check Abd Doppler - Supportive care - Trend CMP, INR, CBC Pt seen and examined with Dr. Ferro; see attestation for further recs/changes. <Chino Ferro V - Last Filed: 06/18/18 00:08> Results - Vital Signs Recent Vital Signs: Last Vital Signs Temp 97.8 F 06/15/18 06:00 Pulse 76 06/15/18 06:00 Resp 18 06/15/18 06:00 BP 113/57 L 06/15/18 06:00 Pulse Ox 100 06/15/18 00:01 - Labs Result Diagrams: 06/15/18 04:55 06/15/18 03:20 Labs: Laboratory Results - last 24 hr 06/14/18 06/15/18 06/15/18 06:00 03:20 04:55 WBC 8.4 D RBC 4.36 Hgb 12.0 L Hct 37.2 L MCV 85.3 MCH 27.5 MCHC 32.3 RDW 14.0 Plt Count 259 MPV 10.2 Gran % 46.8 L Lymph % (Auto) 35.2 H [place] % (Auto) 13.1 H Eos % (Auto) 4.4 Baso % (Auto) 0.5 Gran # 3.95 Lymph # (Auto) 3.0 [place] # (Auto) 1.1 H Eos # (Auto) 0.4 Baso # (Auto) 0.04 PT INR Sodium 144 Potassium 3.3 L Chloride 111 H Carbon Dioxide 25 Anion Gap 10 BUN 5 L Creatinine 0.8 Est GFR ( Amer) > 60 Est GFR (Non-Af Amer) > 60 Random Glucose 98 Calcium 8.8 Phosphorus 4.4 Magnesium 2.0 Total Bilirubin 0.3 AST 128 H D ALT 640 H Alkaline Phosphatase 62 Lactate Dehydrogenase 374 Total Protein 6.7 Albumin 3.6 Globulin 3.1 Albumin/Globulin Ratio 1.2 HIV 1&2 Ag/Ab, 4th Gen Nonreactive 06/15/18 04:55 WBC RBC Hgb Hct MCV MCH MCHC RDW Plt Count MPV Gran % Lymph % (Auto) [place] % (Auto) Eos % (Auto) Baso % (Auto) Gran # Lymph # (Auto) [place] # (Auto) Eos # (Auto) Baso # (Auto) PT 13.5 H INR 1.17 Sodium Potassium Chloride Carbon Dioxide Anion Gap BUN Creatinine Est GFR ( Amer) Est GFR (Non-Af Amer) Random Glucose Calcium Phosphorus Magnesium Total Bilirubin AST ALT Alkaline Phosphatase Lactate Dehydrogenase Total Protein Albumin Globulin Albumin/Globulin Ratio HIV 1&2 Ag/Ab, 4th Gen Attending/Attestation - Attestation I have personally seen and examined this patient.: Yes I have fully participated in the care of the patient.: Yes I have reviewed all pertinent clinical information: Yes Notes (Text): This is a delayed addendum to GI consult report dictated by the GI Fellow.The patient was seen and examined earlier. Medical records, lab studies, imagings were reviewed. Last 24 hours events reviewed. Agreed with the above treatment plan as outlined in GI Fellow 's notes with the addition of the following This patient admitted with abdominal pain Patient appears to have polysubstance drug abuse Abdomen soft Mild tenderness present On deep palpation The differential diagnosis should include gastroenteritis vs low flow state ischemia Continue the antibiotics slowly advance the diet 06/15/18 21:59 06/18/18 00:05
--- NOTE | 2018-06-14 08:40 | US ---
HISTORY: abdominal pain/elevated transaminases COMPARISON: No prior ultrasound available for direct comparison. CT abdomen and pelvis with IV contrast performed 06/13/18 TECHNIQUE: Sonographic evaluation of the abdomen. FINDINGS: LIVER: Measures 17.5 cm in sagittal dimension. Echogenic liver may be seen in setting of hepatic parenchymal disease or fatty infiltration. No focal hepatic mass identified. The main portal vein appears patent with normal directional flow. No intrahepatic bile duct dilatation. GALLBLADDER: No gallstones. No gallbladder wall thickening. Negative sonographic Johnson's sign as assessed by the mine environmental engineer. COMMON BILE DUCT: Measures 6 mm. PANCREAS: Not well visualized. RIGHT KIDNEY: Measures 11.3 x 5.1 x 5.0cm. No obstructing calculus or hydronephrosis identified. LEFT KIDNEY: Measures 11.1 x 6.0 x 6.0cm. No obstructing calculus or hydronephrosis identified. SPLEEN: Measures approximately 11.1 cm cm. AORTA: Not well-visualized. IVC: Not well-visualized. OTHER FINDINGS: None. IMPRESSION: Echogenic liver may be seen in setting of hepatic parenchymal disease or fatty infiltration. Preliminary impression was provided by [employer].
--- NOTE | 2018-06-14 09:30 | CT ---
Date of service: 06/13/2018 PROCEDURE: CT Abdomen and Pelvis with contrast HISTORY: abd pain COMPARISON: CT abdomen and pelvis without IV 03/06/16, abdominal ultrasound performed 06/14/18 TECHNIQUE: Contrast dose: 150 mL Omnipaque 350 Radiation dose: Total exam DLP = 1156.65 mGy-cm. This CT exam was performed using one or more of the following dose reduction techniques: Automated exposure control, adjustment of the mA and/or kV according to patient size, and/or use of iterative reconstruction technique. FINDINGS: LOWER THORAX: No visible consolidation, pleural effusion, or pneumothorax. Small hiatal hernia. LIVER: Hypoattenuation of the liver compatible with hepatic steatosis. GALLBLADDER AND BILE DUCTS: Unremarkable. PANCREAS: Unremarkable. SPLEEN: Unremarkable. ADRENALS: Unremarkable. KIDNEYS AND URETERS: The kidneys enhance symmetrically. No hydronephrosis or obstructing calculus identified. VASCULATURE: No aortic aneurysm. No atherosclerotic calcification or mural plaque present. BOWEL: Stomach is nondistended. Lack of oral contrast limits evaluation for bowel pathology. Bowel loops appear within normal limits of caliber without evidence of obstruction. APPENDIX: The appendix appears is not identified with surgical clips noted at the base of the cecum; correlate for appendectomy. No secondary signs of acute appendicitis. PERITONEUM: No significant free fluid. No definite free air. LYMPH NODES: No bulky adenopathy identified. BLADDER: Urachal remnant, otherwise unremarkable. REPRODUCTIVE: Unremarkable. BONES: No acute osseous abnormality is detected. OTHER FINDINGS: None. IMPRESSION: Hypoattenuation of the liver compatible with hepatic steatosis. Evidence of appendectomy. Correlate with surgical history. Urachal remnant. Patients with a urachal remnant are at increased risk for adenocarcinoma of the bladder. Additional findings as above. Preliminary impression was provided by [employer]
--- NOTE | 2018-06-14 09:46 | CARD ---
APPROVED REPORT Date of service: 06/14/2018 EKG Measurement Heart [id number] <Conclusion> Sinus bradycardia Otherwise normal ECG
[2018-06-14] MEDS ORDERED: cefTRIAXone 1 gm 1 GM/100 ML BAG IVPB SCH (10:00)
[2018-06-14 12:24] LABS: HEPATITIS B SURFACE AG Negative (NEGATIVE)
[2018-06-14 12:30] LABS: HEPATITIS A IGM NEGATIVE (NEGATIVE); HEPATITIS B CORE AB NEGATIVE (NEGATIVE)
[2018-06-14 12:41] LABS: HEPATITIS C ANTIBODY NEGATIVE (NEGATIVE)
--- NOTE | 2018-06-14 15:04 | CP.PCM.PN ---
<Chan Lares - Last Filed: 06/14/18 15:05> Subjective - Date & Time of Evaluation Date of Evaluation: 06/14/18 Time of Evaluation: 10:30 - Subjective Subjective: PGY-1 Medicine Progress note for Dr. Wood' service Patient seen and evaluated at bedside. Patient reports that abdominal pain is now 7/10 localized to the RLQ, and is sharp in nature. He describes it as feeling like being punched in the stomach. He denies episodes of vomiting since arrival, but notes persistent nausea. He has not had a bowel movement since 06/12/2018. No fever, chills, cough, congestion, MCCONNELL, dizziness, hematuria, hematemesis, dysuria, dark/bloodly stools. Objective - Vital Signs/Intake and Output Vital Signs (last 24 hours): Temp Pulse Resp BP Pulse Ox 99.1 F 70 18 112/67 95 06/14/18 12:00 06/14/18 14:00 06/14/18 12:00 06/14/18 12:00 06/14/18 06:00 - Medications Medications: Current Medications Heparin Sodium (Porcine) (Heparin) 5,000 units SC Q8 SKY; Protocol Last Admin: 06/14/18 05:34 Dose: 5,000 units Acetylcysteine 9,530 mg/ (Dextrose) 1,047.65 mls @ 62.5 mls/hr IVPB ONCE ONE Stop: 06/14/18 23:45 Last Admin: 06/14/18 09:46 Dose: 62.5 mls/hr Morphine Sulfate (Morphine) 4 mg IVP Q4H PRN PRN Reason: Pain, severe (8-10) Oxycodone HCl (Oxycodone Immediate Release Tab) 10 mg PO Q6H PRN PRN Reason: Pain, moderate (4-7) Pantoprazole Sodium (Protonix Inj) 40 mg IVP DAILY [facility] Last Admin: 06/14/18 09:20 Dose: 40 mg - Labs Labs: 06/14/18 06:00 06/14/18 06:00 PT 14.5 SECONDS (9.4-12.5) H 06/14/18 06:00 INR 1.26 06/14/18 06:00 - Constitutional Appears: Non-toxic, No Acute Distress - Head Exam Head Exam: NORMAL INSPECTION, NORMOCEPHALIC - Eye Exam Eye Exam: EOMI, Normal appearance. absent: Nystagmus, Scleral icterus - ENT Exam ENT Exam: Mucous Membranes Moist - Respiratory Exam Respiratory Exam: Clear to Ausculation Bilateral, NORMAL BREATHING PATTERN. absent: Rales, Rhonchi, Wheezes - Cardiovascular Exam Cardiovascular Exam: REGULAR RHYTHM, +S1, +S2. absent: Tachycardia - GI/Abdominal Exam GI & Abdominal Exam: Soft, Tenderness, Normal Bowel Sounds. absent: Distended, Firm, Guarding, Rigid - Extremities Exam Extremities Exam: Normal Inspection. absent: Calf Tenderness, Pedal Edema - Neurological Exam Neurological Exam: Alert, Awake, Oriented x3 - Psychiatric Exam Psychiatric exam: Normal Affect, Normal Mood - Skin Skin Exam: Intact, Normal Color Assessment and Plan - Assessment and Plan (Free Text) Assessment: 32 M with PMHx of appendectomy admitted for intractable vomiting and abdominal pain. Elevated AST/ALT with normal bilirubin noted on labs. Likely drug induced because of recent excessive tylenol use and drug use. Transaminits trending down with NAC and cessation of drug use. Plan: Transaminitis GI consulted- Dr. Ferro- APAP WNL, check viral hep- if negative then broad autoimmune w/u, check abd doppler, supportive care, trend CMP, INR, CBC ID consulted- Dr. Owen- recommendations appreciated NAC protocol x3 HIV, HSV, KEVIN ordered Hepatitis panel negative Repeat LFTs, LDH in AM Discontinue Ceftriaxone 1 gm daily and Flagyl 500 mg q8 Oxycodone 10 mg q6h for moderate pain CT Abdomen/Pelvis: hypoattenuation of the liver compatible with hepatic steatosis, evidence of appendectomy, correlated with surgical history; urachal remnant, patients with a urachal remnant are at increased risk for adenocarcinoma of the badder. Abdominal US: echogenic liver may be seen in setting of hepatic parenchymal disease or fatty infiltration UDS: (+) opiates, methadone, benzodiazepines, cocaine metabols UA: protein, ketones, blood, urobilinogen Mild leukocytosis likely reactive to vomiting afebrile; leukocytosis trending down Repeat CBC in AM Electrolyte abnormalities KPhos was given 15 mmol Repeat CMP in AM PPx DVT ppx: SCDs, Heparin SC GI ppx: Protonix <Loraine Wood - Last Filed: 06/15/18 11:32> Objective - Vital Signs/Intake and Output Vital Signs (last 24 hours): Temp Pulse Resp BP Pulse Ox 97.8 F 76 18 113/57 L 100 06/15/18 06:00 06/15/18 06:00 06/15/18 06:00 06/15/18 06:00 06/15/18 00:01 Intake and Output: 06/15/18 06/15/18 06:59 18:59 Intake Total 480 Balance 480 - Labs Labs: 06/15/18 04:55 06/15/18 03:20 PT 13.5 SECONDS (9.4-12.5) H 06/15/18 04:55 INR 1.17 06/15/18 04:55 Attending/Attestation - Attestation I have personally seen and examined this patient.: Yes I have fully participated in the care of the patient.: Yes I have reviewed all pertinent clinical information, including history, physical exam and plan: Yes Notes (Text): 06/15/18 11:32 Medical record note made by the resident after discussion with my direction and input after the patient was personally seen and examined by me. I have reviewed the chart and agree that the record accurately reflects by personal performance of the history, physical exam, data review, and medical decision-making, in the course for the patient. I have also personally directed the plan of care.
[2018-06-14] MEDS: Morphine 4 mg/ml ISec IVP PRN ×2 (16:19→21:11)
[2018-06-14] MEDS: Acyclovir 500 MG in Sodium Chloride 0.9% 100 ML IV SCH (22:18)
[2018-06-15 00:45] VITALS: RESP 18; O2SAT 100
[2018-06-15 04:02] LABS: ALB/GLOB RATIO 1.2 (1.1-1.8); ALBUMIN 3.6 g/dL (3.0-4.8); ALT/SGPT 640 U/L (7-56); AST/SGOT 128 U/L (17-59); BLOOD UREA NITROGEN 5 mg/dL (7-21); CALCIUM 8.8 mg/dL (8.4-10.5); GFR NON-AFRICAN AMERICAN > 60
[2018-06-15] MEDS: Morphine 4 mg/ml ISec IVP PRN (04:04)
[2018-06-15] MEDS: Acyclovir 500 MG in Sodium Chloride 0.9% 100 ML IV SCH (05:23)
[2018-06-15 05:43] LABS: BASO # 0.04 K/mm3 (0.0-2.0); BASO % 0.5 % (0.0-3.0); EOS # 0.4 (0.0-0.7); EOS % 4.4 % (1.5-5.0); GRAN # 3.95 (1.4-6.5); GRAN % 46.8 % (50.0-68.0); LYMPH % 35.2 % (22.0-35.0); MEAN CELL VOLUME 85.3 fl (80.0-105.0); MEAN CORPUSCULAR HEMOGLOBIN 27.5 pg (25.0-35.0); MEAN CORPUSCULAR HGB CONC 32.3 g/dl (31.0-37.0); MEAN PLATELET VOLUME 10.2 fl (7.0-11.0); MONO # 1.1 (0.1-0.6); MONO % 13.1 % (1.0-6.0); RBC 4.36 10^6/uL (3.5-6.1); WHITE BLOOD COUNT 8.4 10^3/ul (4.5-11.0)
[2018-06-15 06:28] LABS: INR 1.17; PROTHROMBIN TIME 13.5 SECONDS (9.4-12.5)
[2018-06-15 06:38] VITALS: BP 113/57; PULSE 76; TEMP 97.8
[2018-06-15] MEDS ORDERED: Potassium Chloride 20 mEq ER Tab PO STA (07:01)
--- NOTE | 2018-06-15 07:25 | CON ---
DATE: 06/14/2018 The patient seen earlier today in room 271, bed 2. CHIEF COMPLAINT: Nausea and vomiting. HISTORY OF PRESENT ILLNESS: This is a 32-year-old male who was admitted with nausea and vomiting, and he states he had dark urine and abdominal cramping. No chest pain, no headaches, no blurred vision, no neck pain, no sore throat. PAST MEDICAL HISTORY: Noncontributory. PAST SURGICAL HISTORY: Significant for appendectomy and right shoulder surgery. ALLERGIES: THE PATIENT HAS NO KNOWN ALLERGIES. He denies smoking, drinking, and denies alcohol and drug use. He lives with a woman and has children. He drives a truck. He is born and raised in [facility]. He has not been outside of [facility]. The last time he ate out was at [employer] three days ago. MEDICATIONS AT HOME: He is not taking any medications at home. PHYSICAL EXAMINATION: GENERAL: On exam, patient is in bed, answering questions. States he feels much better. VITAL SIGNS: Temperature of 98, blood pressure is 112/60, respiratory rate of 18, heart rate of 67, it was up to 93. HEENT: Unremarkable. NECK: Supple. LUNGS: Have decreased breath sounds. HEART: Normal S1, S2. ABDOMEN: Soft, nontender. LABORATORY EXAMINATION: Reveals the patient has a white count of 15,900, hemoglobin of 13, platelets of 320,000, and coagulation is noted. Chemistries reveals a BUN of 10, creatinine of 0.9. LDH is and cholesterol is elevated. Lipase is normal. Kidney function is good. AST of 1045, ALT of 1500. Urinalysis reveals proteinuria, moderate blood. Toxicology is positive for opiates and positive for methadone and positive for benzodiazepines and positive for cocaine. Serology is hepatitis B and C is negative. Microbiology is pending. The patient had a CAT scan of the abdomen and pelvis which revealed liver compatible with hepatic steatosis. The patient's bilirubin is 0.4. Alk phos is normal. Dr. Sánchez's note is reviewed. 's consultation is also reviewed. ASSESSMENT AND PLAN: This is a 32-year-old male with systemic inflammatory response syndrome, acute hepatitis, most likely secondary to the drug and cocaine abuse, and also multiple drug abuse. I doubt herpes encephalitis. We will empirically start acyclovir pending viral workup including hepatitis profile and pancultures and we recommend an HIV testing, drug detoxification, drug rehab, and vasculitis workup. We will follow closely with you. Herbie Owen MD
--- NOTE | 2018-06-15 11:15 | CP.PCM.DIS ---
<Chan Lares - Last Filed: 06/15/18 11:12> Provider - Provider Date of Admission: 06/14/18 00:54 Attending physician: Loraine Wood MD Consults: Dr. Pillo Owen Time Spent in preparation of Discharge (in minutes): 45 Hospital Course - Lab Results Lab Results: Micro Results 06/14/18 02:00 Blood Blood Culture - Preliminary NO GROWTH AFTER 24 HOURS 06/14/18 01:45 Blood Blood Culture - Preliminary NO GROWTH AFTER 24 HOURS Most Recent Lab Values WBC 8.4 10^3/ul (4.5-11.0) D 06/15/18 04:55 RBC 4.36 10^6/uL (3.5-6.1) 06/15/18 04:55 Hgb 12.0 g/dL (14.0-18.0) L 06/15/18 04:55 Hct 37.2 % (42.0-52.0) L 06/15/18 04:55 MCV 85.3 fl (80.0-105.0) 06/15/18 04:55 MCH 27.5 pg (25.0-35.0) 06/15/18 04:55 MCHC 32.3 g/dl (31.0-37.0) 06/15/18 04:55 RDW 14.0 % (11.5-14.5) 06/15/18 04:55 Plt Count 259 10^3/uL (120.0-450.0) 06/15/18 04:55 MPV 10.2 fl (7.0-11.0) 06/15/18 04:55 Gran % 46.8 % (50.0-68.0) L 06/15/18 04:55 Lymph % (Auto) 35.2 % (22.0-35.0) H 06/15/18 04:55 Marion % (Auto) 13.1 % (1.0-6.0) H 06/15/18 04:55 Eos % (Auto) 4.4 % (1.5-5.0) 06/15/18 04:55 Baso % (Auto) 0.5 % (0.0-3.0) 06/15/18 04:55 Gran # 3.95 (1.4-6.5) 06/15/18 04:55 Lymph # (Auto) 3.0 (1.2-3.4) 06/15/18 04:55 Marion # (Auto) 1.1 (0.1-0.6) H 06/15/18 04:55 Eos # (Auto) 0.4 (0.0-0.7) 06/15/18 04:55 Baso # (Auto) 0.04 K/mm3 (0.0-2.0) 06/15/18 04:55 PT 13.5 SECONDS (9.4-12.5) H 06/15/18 04:55 INR 1.17 06/15/18 04:55 Sodium 144 mmol/L (132-148) 06/15/18 03:20 Potassium 3.3 mmol/L (3.6-5.0) L 06/15/18 03:20 Chloride 111 mmol/L (98-107) H 06/15/18 03:20 Carbon Dioxide 25 mmol/L (21-33) 06/15/18 03:20 Anion Gap 10 (10-20) 06/15/18 03:20 BUN 5 mg/dL (7-21) L 06/15/18 03:20 Creatinine 0.8 mg/dl (0.8-1.5) 06/15/18 03:20 Est GFR ( Amer) > 60 06/15/18 03:20 Est GFR (Non-Af Amer) > 60 06/15/18 03:20 Random Glucose 98 mg/dL (70-110) 06/15/18 03:20 Hemoglobin A1c 5.9 % (4.2-6.5) 06/13/18 22:00 Calcium 8.8 mg/dL (8.4-10.5) 06/15/18 03:20 Phosphorus 4.4 mg/dL (2.5-4.5) 06/15/18 03:20 Magnesium 2.0 mg/dL (1.7-2.2) 06/15/18 03:20 Total Bilirubin 0.3 mg/dL (0.2-1.3) 06/15/18 03:20 AST 128 U/L (17-59) H D 06/15/18 03:20 ALT 640 U/L (7-56) H 06/15/18 03:20 Alkaline Phosphatase 62 U/L (38-126) 06/15/18 03:20 Ammonia 16 umol/L (9-33) 06/14/18 02:00 Lactate Dehydrogenase 374 U/L (333-699) 06/15/18 03:20 Total Creatine Kinase 109 U/L (35-230) 06/14/18 06:30 Total Protein 6.7 g/dL (5.8-8.3) 06/15/18 03:20 Albumin 3.6 g/dL (3.0-4.8) 06/15/18 03:20 Globulin 3.1 gm/dL 06/15/18 03:20 Albumin/Globulin Ratio 1.2 (1.1-1.8) 06/15/18 03:20 Triglycerides 140 mg/dL (35-160) 06/13/18 22:00 Cholesterol 127 mg/dL (130-200) L 06/13/18 22:00 LDL Cholesterol Direct 68 mg/dL (0-129) 06/13/18 22:00 HDL Cholesterol 37 mg/dL (29-60) 06/13/18 22:00 Lipase 67 U/L (23-300) 06/13/18 22:00 Urine Color Yellow (YELLOW) 06/14/18 02:30 Urine Appearance Sl cloudy (CLEAR) 06/14/18 02:30 Urine pH 6.5 (4.7-8.0) 06/14/18 02:30 Ur Specific Lamont 1.010 (1.005-1.035) 06/14/18 02:30 Urine Protein 30 mg/dL (<30 mg/dL) H 06/14/18 02:30 Urine Glucose (UA) Negative mg/dL (NEGATIVE) 06/14/18 02:30 Urine Ketones 15 mg/dL (NEGATIVE) H 06/14/18 02:30 Urine Blood Moderate (NEGATIVE) H 06/14/18 02:30 Urine Nitrate Negative (NEGATIVE) 06/14/18 02:30 Urine Bilirubin Negative (NEGATIVE) 06/14/18 02:30 Urine Urobilinogen 1.0 E.U./dL (<1 E.U./dL) H 06/14/18 02:30 Ur Leukocyte Esterase Negative Jomar/uL (NEGATIVE) 06/14/18 02:30 Urine RBC 10 - 15 /hpf (0-2) 06/14/18 02:30 Urine WBC 0 - 2 /hpf (0-6) 06/14/18 02:30 Ur Epithelial Cells 0 - 2 /hpf (0-5) 06/14/18 02:30 Urine Bacteria None (NEG) 06/14/18 02:30 Urine Opiates Screen Positive (NEGATIVE) H 06/14/18 02:30 Urine Methadone Screen Positive (NEGATIVE) H 06/14/18 02:30 Acetaminophen < 10.0 ug/ml (10.0-20.0) L 06/13/18 22:00 Ur Barbiturates Screen Negative (NEGATIVE) 06/14/18 02:30 Ur Phencyclidine Scrn Negative (NEGATIVE) 06/14/18 02:30 Ur Amphetamines Screen Negative (NEGATIVE) 06/14/18 02:30 U Benzodiazepines Scrn Positive (NEGATIVE) H 06/14/18 02:30 U Oth Cocaine Metabols Positive (NEGATIVE) H 06/14/18 02:30 U Cannabinoids Screen Negative (NEGATIVE) 06/14/18 02:30 Alcohol, Quantitative < 10 mg/dL (0-10) 06/13/18 22:00 Hepatitis A IgM Ab Negative (NEGATIVE) 06/13/18 22:00 Hep Bs Antigen Negative (NEGATIVE) 06/13/18 22:00 Hep B Core IgM Ab Negative (NEGATIVE) 06/13/18 22:00 Hepatitis C Antibody Negative (NEGATIVE) 06/13/18 22:00 HIV 1&2 Ag/Ab, 4th Gen Nonreactive (Nonreactive) 06/14/18 06:00 - Hospital Course Hospital Course: Upon Admission Patient is a 32 year old male with PMHx of appendectomy presents today with complaint of intractable nausea and vomiting x 3 day. He states he has had sharp pain that comes in 5-7 minute waves that has not been relieved by over the counter medications. Patient states he could not keep any food down. Patient reports dark urine. Patient reports multiple family members have suffered from opiate dependence. No bowel movements for three days. Reports urine has been dark and feel dehydrated. Patient reports taking 3 children's Tylenol for 2 days for abdominal pain, and patient reports use of Muscle milk and pepto bismol without relief. Denies any fever, chills, chest pain, shortness of breath, cough or dysuria. Denies any other complaints. Hospital Course Patient is a 32 y.o male who was admitted for intractable nausea and vomiting fo r three days. Labs were ordered showing elevated LFTs, LDH, and electrolyte abnormalities. Patient was given N-acetylcysteine x3 for management of increased LFTs 2/2 to recent tylenol use. UDS was positive for cocaine, BZDs, opiates, and methadone. Electrolytes were repleted. Patient's blood work was trended showing decreasing LFTs. Patient stated he no longer wanted to stay in hospital and decided that he wanted to leave against medical advice because he felt good. Patient's girlfriend was at bedside who oversaw full interaction and tried to convince patient to stay. Patient was to follow up with primary medical doctor. Discharge Plan Patient left AMA. Disclaimer: Written above is a shortened synopsis of patient's current hospital admission. For full report refer to EMR. Discharge Exam - Head Exam Head Exam: NORMAL INSPECTION, NORMOCEPHALIC - Eye Exam Eye Exam: EOMI, Normal appearance. absent: Nystagmus, Scleral icterus - ENT Exam ENT Exam: Mucous Membranes Moist - Respiratory Exam Respiratory Exam: NORMAL BREATHING PATTERN. absent: Accessory Muscle Use, Rales, Rhonchi, Wheezes, Respiratory Distress - Cardiovascular Exam Cardiovascular Exam: REGULAR RHYTHM, +S1, +S2. absent: Tachycardia, Systolic Murmur - GI/Abdominal Exam GI & Abdominal Exam: Normal Bowel Sounds, Soft. absent: Diminished Bowel Sounds, Distended, Firm, Guarding, Tenderness - Extremities Exam Extremities exam: normal inspection - Neurological Exam Neurological exam: Alert, Normal Gait, Oriented x3 - Psychiatric Exam Psychiatric exam: Agitated - Skin Skin Exam: Intact, Normal Color Discharge Plan - Follow Up Plan Condition: STABLE Disposition: AGAINST MEDICAL ADVICE Patient education suggested?: Yes Additional Instructions: Patient left AMA. The risks were explained to patient if he left AMA. The benefits were explained to patient if he stayed. Patient understood risks but did not want to stay. Nurse witnessed interaction. <Loraine Wood - Last Filed: 06/15/18 11:31> Provider - Provider Date of Admission: 06/14/18 00:54 Attending physician: Loraine Wood MD Hospital Course - Lab Results Lab Results: Micro Results 06/14/18 02:00 Blood Blood Culture - Preliminary NO GROWTH AFTER 24 HOURS 06/14/18 01:45 Blood Blood Culture - Preliminary NO GROWTH AFTER 24 HOURS Most Recent Lab Values WBC 8.4 10^3/ul (4.5-11.0) D 06/15/18 04:55 RBC 4.36 10^6/uL (3.5-6.1) 06/15/18 04:55 Hgb 12.0 g/dL (14.0-18.0) L 06/15/18 04:55 Hct 37.2 % (42.0-52.0) L 06/15/18 04:55 MCV 85.3 fl (80.0-105.0) 06/15/18 04:55 MCH 27.5 pg (25.0-35.0) 06/15/18 04:55 MCHC 32.3 g/dl (31.0-37.0) 06/15/18 04:55 RDW 14.0 % (11.5-14.5) 06/15/18 04:55 Plt Count 259 10^3/uL (120.0-450.0) 06/15/18 04:55 MPV 10.2 fl (7.0-11.0) 06/15/18 04:55 Gran % 46.8 % (50.0-68.0) L 06/15/18 04:55 Lymph % (Auto) 35.2 % (22.0-35.0) H 06/15/18 04:55 Marion % (Auto) 13.1 % (1.0-6.0) H 06/15/18 04:55 Eos % (Auto) 4.4 % (1.5-5.0) 06/15/18 04:55 Baso % (Auto) 0.5 % (0.0-3.0) 06/15/18 04:55 Gran # 3.95 (1.4-6.5) 06/15/18 04:55 Lymph # (Auto) 3.0 (1.2-3.4) 06/15/18 04:55 Marion # (Auto) 1.1 (0.1-0.6) H 06/15/18 04:55 Eos # (Auto) 0.4 (0.0-0.7) 06/15/18 04:55 Baso # (Auto) 0.04 K/mm3 (0.0-2.0) 06/15/18 04:55 PT 13.5 SECONDS (9.4-12.5) H 06/15/18 04:55 INR 1.17 06/15/18 04:55 Sodium 144 mmol/L (132-148) 06/15/18 03:20 Potassium 3.3 mmol/L (3.6-5.0) L 06/15/18 03:20 Chloride 111 mmol/L (98-107) H 06/15/18 03:20 Carbon Dioxide 25 mmol/L (21-33) 06/15/18 03:20 Anion Gap 10 (10-20) 06/15/18 03:20 BUN 5 mg/dL (7-21) L 06/15/18 03:20 Creatinine 0.8 mg/dl (0.8-1.5) 06/15/18 03:20 Est GFR ( Amer) > 60 06/15/18 03:20 Est GFR (Non-Af Amer) > 60 06/15/18 03:20 Random Glucose 98 mg/dL (70-110) 06/15/18 03:20 Hemoglobin A1c 5.9 % (4.2-6.5) 06/13/18 22:00 Calcium 8.8 mg/dL (8.4-10.5) 06/15/18 03:20 Phosphorus 4.4 mg/dL (2.5-4.5) 06/15/18 03:20 Magnesium 2.0 mg/dL (1.7-2.2) 06/15/18 03:20 Total Bilirubin 0.3 mg/dL (0.2-1.3) 06/15/18 03:20 AST 128 U/L (17-59) H D 06/15/18 03:20 ALT 640 U/L (7-56) H 06/15/18 03:20 Alkaline Phosphatase 62 U/L (38-126) 06/15/18 03:20 Ammonia 16 umol/L (9-33) 06/14/18 02:00 Lactate Dehydrogenase 374 U/L (333-699) 06/15/18 03:20 Total Creatine Kinase 109 U/L (35-230) 06/14/18 06:30 Total Protein 6.7 g/dL (5.8-8.3) 06/15/18 03:20 Albumin 3.6 g/dL (3.0-4.8) 06/15/18 03:20 Globulin 3.1 gm/dL 06/15/18 03:20 Albumin/Globulin Ratio 1.2 (1.1-1.8) 06/15/18 03:20 Triglycerides 140 mg/dL (35-160) 06/13/18 22:00 Cholesterol 127 mg/dL (130-200) L 06/13/18 22:00 LDL Cholesterol Direct 68 mg/dL (0-129) 06/13/18 22:00 HDL Cholesterol 37 mg/dL (29-60) 06/13/18 22:00 Lipase 67 U/L (23-300) 06/13/18 22:00 Urine Color Yellow (YELLOW) 06/14/18 02:30 Urine Appearance Sl cloudy (CLEAR) 06/14/18 02:30 Urine pH 6.5 (4.7-8.0) 06/14/18 02:30 Ur Specific Lamont 1.010 (1.005-1.035) 06/14/18 02:30 Urine Protein 30 mg/dL (<30 mg/dL) H 06/14/18 02:30 Urine Glucose (UA) Negative mg/dL (NEGATIVE) 06/14/18 02:30 Urine Ketones 15 mg/dL (NEGATIVE) H 06/14/18 02:30 Urine Blood Moderate (NEGATIVE) H 06/14/18 02:30 Urine Nitrate Negative (NEGATIVE) 06/14/18 02:30 Urine Bilirubin Negative (NEGATIVE) 06/14/18 02:30 Urine Urobilinogen 1.0 E.U./dL (<1 E.U./dL) H 06/14/18 02:30 Ur Leukocyte Esterase Negative Jomar/uL (NEGATIVE) 06/14/18 02:30 Urine RBC 10 - 15 /hpf (0-2) 06/14/18 02:30 Urine WBC 0 - 2 /hpf (0-6) 06/14/18 02:30 Ur Epithelial Cells 0 - 2 /hpf (0-5) 06/14/18 02:30 Urine Bacteria None (NEG) 06/14/18 02:30 Urine Opiates Screen Positive (NEGATIVE) H 06/14/18 02:30 Urine Methadone Screen Positive (NEGATIVE) H 06/14/18 02:30 Acetaminophen < 10.0 ug/ml (10.0-20.0) L 06/13/18 22:00 Ur Barbiturates Screen Negative (NEGATIVE) 06/14/18 02:30 Ur Phencyclidine Scrn Negative (NEGATIVE) 06/14/18 02:30 Ur Amphetamines Screen Negative (NEGATIVE) 06/14/18 02:30 U Benzodiazepines Scrn Positive (NEGATIVE) H 06/14/18 02:30 U Oth Cocaine Metabols Positive (NEGATIVE) H 06/14/18 02:30 U Cannabinoids Screen Negative (NEGATIVE) 06/14/18 02:30 Alcohol, Quantitative < 10 mg/dL (0-10) 06/13/18 22:00 Hepatitis A IgM Ab Negative (NEGATIVE) 06/13/18 22:00 Hep Bs Antigen Negative (NEGATIVE) 06/13/18 22:00 Hep B Core IgM Ab Negative (NEGATIVE) 06/13/18 22:00 Hepatitis C Antibody Negative (NEGATIVE) 06/13/18 22:00 HIV 1&2 Ag/Ab, 4th Gen Nonreactive (Nonreactive) 06/14/18 06:00 Attending/Attestation - Attestation I have personally seen and examined this patient.: Yes I have fully participated in the care of the patient.: Yes I have reviewed all pertinent clinical information, including history, physical exam and plan: Yes Notes (Text): 06/15/18 11:26 Medical record note made by the resident after discussion with my direction and input after the patient was personally seen and examined by me. I have reviewed the chart and agree that the record accurately reflects by personal performance of the history, physical exam, data review, and medical decision-making, in the course for the patient. I have also personally directed the plan of care. 32 yrs old male who was admitted for intractable nausea and vomiting for three days. Work up revealed elevated LFTs,(AST 1045 and ALT 1511 electrolyte abnormalities. Patient was given N-acetylcysteine x3 . Urine toxicology for drug screen was positive for cocaine, BZDs, opiates, and methadone.Patient AST and ALT are coming down, he is alert ,awake and oriented, does not want to stay in the hospital. was at bed side.The issue was discussed in detail with him but he refused to stay and has signed against medical advice. Prognosis is guarded due to ongoing drug abuse and non compliance. 06/15/18 11:28
--- NOTE | 2018-06-15 17:24 | PN ---
DATE: 06/15/2018 SUBJECTIVE: The patient is in bed, in no acute distress, nontoxic. No fevers and no chills. The patient was seen earlier this morning. PHYSICAL EXAMINATION: VITAL SIGNS: Temperature is 98, blood pressure is 120/70, respiratory rate of 16. HEENT: Unremarkable. NECK: Supple. LUNGS: Have decreased breath sounds. HEART: Normal S1, S2. ABDOMINAL: Soft. LABORATORY EXAMINATION: Reveals a white count is 8.4, hemoglobin of 12 and coagulation is noted. Serology is reviewed. The patient has been afebrile throughout the entire stay. Blood cultures are negative. Liver function tests are greatly improved. ASSESSMENT AND PLAN: A 32-year-old who was admitted with nausea and vomiting. He met me with acute hepatitis, most likely secondary to drug use. Highly unlikely to be herpes since there has been no fevers and it resolved so quickly. Herbie Owen MD
== END 2018-06-15 08:58 | disposition left against medical advice (07) | DRG 205 ==
LOC: ED 20:28 → ERH 06-14 00:54 → 2RSO 06-14 04:02
PROVIDERS: ADMIT Internal Medicine; ATTEND Internal Medicine
DX: B17.9 Acute viral hepatitis, unspecified (principal); F14.10 Cocaine abuse, uncomplicated; E87.8 Other disorders of electrolyte and fluid balance, not elsewhere classified; F19.10 Other psychoactive substance abuse, uncomplicated; E86.0 Dehydration; K52.9 Noninfective gastroenteritis and colitis, unspecified; Z87.891 Personal history of nicotine dependence; Z91.19 Patient's noncompliance with other medical treatment and regimen

== ENCOUNTER 2018-12-16 06:39 | Emergency (ER) | payer MEDICAID ==
[2018-12-16 06:40] VITALS: BMI 28.5
[2018-12-16] MEDS ORDERED: Sodium Chloride 0.9% 1,000 ML IV STA (07:10)
--- NOTE | 2018-12-16 07:15 | ED PDOC ---
Arrival/HPI - History of Present Illness Narrative History of Present Illness (Text): 12/16/18 07:12 Patient is a 33 year old male with past medical history of hepatic steatosis presenting with abdominal pain, nausea, and vomiting for two days. Abdominal pain is mostly in right upper quadrant, described as constant and sharp. Denies change in dietary habits. Denies sick contacts, recent travel, recent illnesses. Denies fevers, chills, chest pain, shortness of breath, diarrhea, dysuria. Symptom Onset: Sudden Symptom Course: Unchanged Quality: Stabbing Severity Level: Moderate <Laura Rodriguez - Last Filed: 12/16/18 12:14> <Damion Rodney - Last Filed: 12/16/18 18:21> - General Chief Complaint: GI Problem Time Seen by Provider: 12/16/18 07:02 Past Medical History - Provider Review Nursing Documentation Reviewed: Yes - Past History Past History: No Previous - Infectious Disease Hx of Infectious Diseases: None - Tetanus Immunization Tetanus Immunization: Unknown - Cardiac Hx Cardiac Disorders: No - Pulmonary Hx Asthma: Yes - Neurological Hx Neurological Disorder: No - HEENT Hx HEENT Disorder: No - Renal Hx Renal Disorder: No - Endocrine/Metabolic Hx Endocrine Disorders: No - Hematological/Oncological Hx Blood Disorders: No - Integumentary Hx Dermatological Disorder: No - Musculoskeletal/Rheumatological Hx Musculoskeletal Disorders: Yes (right rotator cuff repair) - Gastrointestinal Hx Gastrointestinal Disorders: No - Genitourinary/Gynecological Hx Genitourinary Disorders: No - Psychiatric Hx Psychophysiologic Disorder: No Hx Substance Use: No - Past Surgical History Past Surgical History: No Previous - Surgical History Hx Appendectomy: Yes Hx Orthopedic Surgery: Yes (rotator cuff repair) - Anesthesia Hx Anesthesia: Yes Hx Anesthesia Reactions: No Hx Malignant Hyperthermia: No - Suicidal Assessment Feels Threatened In Home Enviroment: No <Laura Rodriguez - Last Filed: 12/16/18 12:14> Family/Social History - Physician Review Nursing Documentation Reviewed: Yes Family/Social History: No Known Family HX Smoking Status: Light Smoker < 10 Cigarettes Daily Hx Alcohol Use: Yes Hx Substance Use: No Hx Substance Use Treatment: No <Laura Rodriguez - Last Filed: 12/16/18 12:14> Allergies/Home Meds <Laura Rodriguez - Last Filed: 12/16/18 12:14> <Damion Rodney - Last Filed: 12/16/18 18:21> Allergies/Adverse Reactions: Allergies No Known Allergies Allergy (Verified 09/18/17 17:24) Review of Systems - Review of Systems Respiratory: Normal Cardiovascular: Normal Gastrointestinal: Abdominal Pain, Nausea, Vomiting Genitourinary Male: Normal <JenniferKiairish L - Last Filed: 12/16/18 12:14> - Physician Review All systems were reviewed & negative as marked: Yes <Damion Rodney - Last Filed: 12/16/18 18:21> Physical Exam Vital Signs Reviewed: Yes Vital Signs Temp Pulse Resp BP Pulse Ox 12/16/18 06:50 98.1 F 56 L 16 136/69 97 Temperature: Afebrile Blood Pressure: Normal Pulse: Regular Respiratory Rate: Normal Appearance: Positive for: Uncomfortable Pain Distress: Mild Mental Status: Positive for: Alert and Oriented X 3 - Systems Exam Head: Present: Atraumatic, Normocephalic Pupils: Present: PERRL Extroacular Muscles: Present: EOMI Conjunctiva: Present: Normal Respiratory/Chest: Present: Clear to Auscultation, Good Air Exchange. No: Respiratory Distress, Accessory Muscle Use Cardiovascular: Present: Regular Rate and Rhythm, Normal S1, S2. No: Tachycardic Abdomen: Present: Tenderness (RUQ), Normal Bowel Sounds. No: Distention, Rebound Lower Extremity: Present: Normal Inspection. No: Edema Neurological: Present: GCS=15, CN II-XII Intact, Speech Normal Skin: Present: Warm, Dry, Normal Color Psychiatric: Present: Alert, Oriented x 3 <Laura Rodriguez L - Last Filed: 12/16/18 12:14> Vital Signs Temp Pulse Resp BP Pulse Ox 12/16/18 10:56 98.6 F 83 19 122/78 97 12/16/18 10:49 98.6 F 82 18 117/64 98 12/16/18 08:14 98.9 F 89 16 126/64 97 12/16/18 06:50 98.1 F 56 L 16 136/69 97 <Damion Rodney - Last Filed: 12/16/18 18:21> Medical Decision Making ED Course and Treatment: 12/16/18 07:16 Impression: 33 year old male with abdominal pain Plan: - CBC, CMP - Direct bilirubin - Acetaminophen, salicylate - Coag panel - UDS - Urinalysis - Zofran - Protonix - IVF - Reassess and disposition Prior Visits: Notes and results from previous visits were reviewed. Progress Notes: 12/16/18 10:00 FINDINGS: LOWER THORAX: Unremarkable. LIVER: Low-attenuation liver suggestive of hepatic steatosis. No gross lesion or ductal dilatation. GALLBLADDER AND BILE DUCTS: Unremarkable. PANCREAS: Unremarkable. No gross lesion or ductal dilatation. SPLEEN: Unremarkable. ADRENALS: Unremarkable. No mass. KIDNEYS AND URETERS: Unremarkable. No hydronephrosis. No solid mass. VASCULATURE: Unremarkable. No aortic aneurysm. No aortic atherosclerotic calcification or mural plaque present. BOWEL: Unremarkable. No obstruction. No gross mural thickening. APPENDIX: The patient is likely status post appendectomy. . PERITONEUM: Unremarkable. No free fluid. No free air. LYMPH NODES: Unremarkable. No enlarged lymph nodes. BLADDER: Unremarkable. REPRODUCTIVE: Unremarkable. BONES: No acute fracture. OTHER FINDINGS: Urachal remnant. Patients with a urachal remnant are at increased risk for adenocarcinoma of the bladder. . IMPRESSION: No evidence of high-grade small bowel obstruction. No CT evidence of acute pathology in the abdomen and pelvis. Labs and imaging reviewed. Patient optimized for discharge and follow up with primary medical doctor. Patient in agreement with plan of management. - Lab Interpretations I have reviewed the lab results: Yes - Medication Orders Current Medication Orders: Sodium Chloride (Sodium Chloride 0.9%) 1,000 mls @ 999 mls/hr IV .Q1H1M STA Stop: 12/16/18 08:10 Ondansetron HCl (Zofran Inj) 4 mg IVP STAT STA Stop: 12/16/18 07:12 Pantoprazole Sodium (Protonix Inj) 40 mg IVP STAT STA Stop: 12/16/18 07:11 <Laura Rodriguez L - Last Filed: 12/16/18 12:14> ED Course and Treatment: 12/16/18 18:19 abd pian/vomiting pt seenwith resdient. mild leuckocytosis, baseline for pt, imaging neg. symptoms improved in er. suspect viral gastro. 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 . in er, no elevated lft. bicarb 25, not acidemic, urine neg for cocaine 12/16/18 18:21 - Lab Interpretations Lab Results: PT 12.9 SECONDS (9.4-12.5) H 12/16/18 07:21 INR 1.14 12/16/18 07:21 APTT 27.0 Seconds (26.9-38.3) 12/16/18 07:21 Total Bilirubin 1.0 mg/dL (0.2-1.3) 12/16/18 07:21 Direct Bilirubin 0.2 mg/dL (0.0-0.4) 12/16/18 07:21 AST 22 U/L (17-59) 12/16/18 07:21 ALT 10 U/L (7-56) 12/16/18 07:21 Alkaline Phosphatase 86 U/L (38-126) 12/16/18 07:21 Total Protein 9.3 g/dL (5.8-8.3) H 12/16/18 07:21 Albumin 5.1 g/dL (3.0-4.8) H 12/16/18 07:21 Globulin 4.2 gm/dL 12/16/18 07:21 Albumin/Globulin Ratio 1.2 (1.1-1.8) 12/16/18 07:21 Lipase 36 U/L (23-300) 12/16/18 07:21 Urine Color Yellow (YELLOW) 12/16/18 09:30 Urine Appearance Clear (CLEAR) 12/16/18 09:30 Urine pH 7.0 (4.7-8.0) 12/16/18 09:30 Ur Specific Robinson <= 1.005 (1.005-1.035) 12/16/18 09:30 Urine Protein 30 mg/dL (<30 mg/dL) H 12/16/18 09:30 Urine Glucose (UA) Negative mg/dL (NEGATIVE) 12/16/18 09:30 Urine Ketones Negative mg/dL (NEGATIVE) 12/16/18 09:30 Urine Blood Trace-lysed (NEGATIVE) H 12/16/18 09:30 Urine Nitrate Negative (NEGATIVE) 12/16/18 09:30 Urine Bilirubin Negative (NEGATIVE) 12/16/18 09:30 Urine Urobilinogen 0.2 E.U./dL (<1 E.U./dL) 12/16/18 09:30 Ur Leukocyte Esterase Negative Jomar/uL (NEGATIVE) 12/16/18 09:30 Urine RBC 2 - 5 /hpf (0-2) H 12/16/18 09:30 Urine WBC 0 - 2 /hpf (0-6) 12/16/18 09:30 Ur Epithelial Cells None /hpf (0-5) 12/16/18 09:30 Urine Bacteria Few /hpf (NONE) 12/16/18 09:30 Urine Other Fiber /hpf 12/16/18 09:30 - RAD Interpretation Radiology Orders: 12/16/18 07:51 ABD & PELVIS IV CONTRAST ONLY [CT] Stat - Medication Orders Current Medication Orders: Discontinued Medications Sodium Chloride (Sodium Chloride 0.9%) 1,000 mls @ 999 mls/hr IV .Q1H1M STA Stop: 12/16/18 08:10 Last Admin: 12/16/18 07:37 Dose: 999 mls/hr eMAR Start Stop Document 12/16/18 07:37 KATELYN (Rec: 12/16/18 07:38 [id number] Intravenous Solution Start Date 12/16/18 Start Time 07:10 End Date 12/16/18 End time 08:10 Total Infusion Time 60 Ondansetron HCl (Zofran Inj) 4 mg IVP STAT STA Stop: 12/16/18 07:12 Last Admin: 12/16/18 07:38 Dose: 4 mg IVP Administration Document 12/16/18 07:38 Bindu (Rec: 12/16/18 07:38 [id number] Charges for Administration # of IVP Administrations 1 Pantoprazole Sodium (Protonix Inj) 40 mg IVP STAT STA Stop: 12/16/18 07:11 Last Admin: 12/16/18 07:38 Dose: 40 mg IVP Administration Document 12/16/18 07:38 A (Rec: 12/16/18 07:38 [id number]) Charges for Administration # of IVP Administrations 1 <Damion Rodney - Last Filed: 12/16/18 18:21> Disposition/Present on Arrival - Present on Arrival Any Indicators Present on Arrival: No History of DVT/PE: No History of Uncontrolled Diabetes: No Urinary Catheter: No History of Decub. Ulcer: No History Surgical Site Infection Following: None - Disposition Have Diagnosis and Disposition been Completed?: Yes Disposition Time: 10:42 <Laura Rodriguez - Last Filed: 12/16/18 12:14> <Damion Rodney - Last Filed: 12/16/18 18:21> - Disposition Diagnosis: Abdominal pain, Leukocytosis Disposition: HOME/ ROUTINE Condition: STABLE Discharge Instructions (ExitCare): Viral Gastroenteritis, Nausea and Vomiting, Adult Additional Instructions: please see specialist. return to any er with worsening. Prescriptions: Ondansetron ODT [Zofran ODT] 4 mg PO Q8 PRN #15 odt PRN Reason: Nausea/Vomiting Referrals: Adrian Hodges MD [Staff Provider] - Follow up with primary Forms: [employer] ([place])
[2018-12-16 07:39] LABS: BASO # 0.02 K/mm3 (0.0-2.0); BASO % 0.1 % (0.0-3.0); EOS % 0.1 % (1.5-5.0); HEMOGLOBIN 15.6 g/dL (14.0-18.0); LYMPH # 2.7 (1.2-3.4); LYMPH % 16.7 % (22.0-35.0); MEAN CELL VOLUME 83.6 fl (80.0-105.0); MEAN CORPUSCULAR HEMOGLOBIN 27.8 pg (25.0-35.0); MEAN CORPUSCULAR HGB CONC 33.2 g/dl (31.0-37.0); MEAN PLATELET VOLUME 10.5 fl (7.0-11.0); MONO # 1.3 (0.1-0.6); MONO % 7.8 % (1.0-6.0); RBC 5.62 10^6/uL (3.5-6.1); RED CELL DISTRIBUTION WIDTH 13.8 % (11.5-14.5)
[2018-12-16 07:47] LABS: INR 1.14; PROTHROMBIN TIME 12.9 SECONDS (9.4-12.5)
[2018-12-16 07:50] LABS: ALB/GLOB RATIO 1.2 (1.1-1.8); ALBUMIN 5.1 g/dL (3.0-4.8); ALT/SGPT 10 U/L (7-56); AST/SGOT 22 U/L (17-59); BILIRUBIN,DIRECT 0.2 mg/dL (0.0-0.4); BLOOD UREA NITROGEN 20 mg/dL (7-21); CALCIUM 10.4 mg/dL (8.4-10.5); GFR NON-AFRICAN AMERICAN 59; LIPASE 36 U/L (23-300)
[2018-12-16 07:51] LABS: ACETAMINOPHEN < 10.0 ug/ml (10.0-20.0); SALICYLATE 4 mg/dL (2.0-20.0)
[2018-12-16 09:41] LABS: URINE BILIRUBIN NEGATIVE (NEGATIVE); URINE BLOOD TRACE-LYSED (NEGATIVE); URINE GLUCOSE (UA) NEGATIVE (NEGATIVE); URINE LEUKOCYTE ESTERASE NEGATIVE Leu/uL (NEGATIVE); URINE PROTEIN 30 mg/dL (<30 mg/dL); URINE UROBILINOGEN 0.2 E.U./dL (<1 E.U./dL)
[2018-12-16 09:49] LABS: URINE APPEARANCE CLEAR (CLEAR); URINE COLOR YELLOW (YELLOW)
--- NOTE | 2018-12-16 09:56 | CT ---
Date of service: 12/16/2018 PROCEDURE: CT Abdomen and Pelvis with contrast HISTORY: abd pain, vomiting COMPARISON: Comparison is made with the previous study dated 06/13/2018. TECHNIQUE: Contrast dose: 100 mL of Omnipaque 350 intravenously. Axial and reformatted coronal and sagittal CT images of the abdomen and pelvis were obtained after IV and oral contrast administration. Radiation dose: Total exam DLP = 1111.49 mGy-cm. This CT exam was performed using one or more of the following dose reduction techniques: Automated exposure control, adjustment of the mA and/or kV according to patient size, and/or use of iterative reconstruction technique. FINDINGS: LOWER THORAX: Unremarkable. LIVER: Low-attenuation liver suggestive of hepatic steatosis. No gross lesion or ductal dilatation. GALLBLADDER AND BILE DUCTS: Unremarkable. PANCREAS: Unremarkable. No gross lesion or ductal dilatation. SPLEEN: Unremarkable. ADRENALS: Unremarkable. No mass. KIDNEYS AND URETERS: Unremarkable. No hydronephrosis. No solid mass. VASCULATURE: Unremarkable. No aortic aneurysm. No aortic atherosclerotic calcification or mural plaque present. BOWEL: Unremarkable. No obstruction. No gross mural thickening. APPENDIX: The patient is likely status post appendectomy. . PERITONEUM: Unremarkable. No free fluid. No free air. LYMPH NODES: Unremarkable. No enlarged lymph nodes. BLADDER: Unremarkable. REPRODUCTIVE: Unremarkable. BONES: No acute fracture. OTHER FINDINGS: Urachal remnant. Patients with a urachal remnant are at increased risk for adenocarcinoma of the bladder. . IMPRESSION: No evidence of high-grade small bowel obstruction. No CT evidence of acute pathology in the abdomen and pelvis.
[2018-12-16 10:03] LABS: URINE BACTERIA FEW /hpf; URINE WBC 0 - 2 /hpf (0-6)
[2018-12-16 10:07] LABS: BARBITURATES, UR NEGATIVE (NEGATIVE); BENZODIAZEPINES, UR POSITIVE (NEGATIVE); OPIATES, UR POSITIVE (NEGATIVE); PHENCYCLIDINE, UR NEGATIVE (NEGATIVE)
[2018-12-16 10:49] VITALS: TEMP 98.6
[2018-12-16 10:58] VITALS: BP 122/78; PULSE 83; RESP 19; O2SAT 97
== END 2018-12-16 10:59 | disposition home or self-care (01) ==
LOC: ED 06:39
DX: R10.11 Right upper quadrant pain (principal); D72.829 Elevated white blood cell count, unspecified; F17.210 Nicotine dependence, cigarettes, uncomplicated
CPT/HCPCS: 74177; 80053; 80324; 80329; 80345; 80346; 80349; 80353; 80358; 80361; 81001; 82248; 83690; 83735; 83992; 85025; 85610; 85730; 96361; 96374; 96375; 99284; C9113; J2405; J7030; Q9967